=== PATIENT | female | born 1945 | race Caucasian/White ===

== ENCOUNTER 2019-10-21 17:39 | Outpatient (CLI) | payer BC, MEDICARE, SELFPAY ==
--- NOTE | ~2019-10-21 | CT_ITS ---
EXAMINATION: CT abdomen pelvis wo con DATE: 10/21/2019 18:40 INDICATION: Microhematuria. TECHNIQUE: Computed tomography (CT) of the abdomen and pelvis was performed without intravenous contr ast. Automated exposure control and iterative reconstruction technique were employed. The dose-length product was 1355.94 mGy-cm. COMPARISON: CT abdomen and pelvis 09/04/2016 FINDINGS: The visualized portions of the lung bases demonstrate mild atelectasis. No pleural effusion . The heart size is normal. There are coronary artery calcifications. No pericardial effusion. The li lizzette, gallbladder, spleen, pancreas, and adrenal glands are normal. There is a 10 mm cyst in right kid jeff. There is a 4 mm stone in right kidney. There is focal cortical thinning in left kidney. There is a 12 mm cyst in left kidney. There are 3 stones in left kidney measuring up to 5 mm. The ureters are normal. The bladder is not well-distended. There are no dilated loops of bowel. There are no patholo gically enlarged lymph nodes. There is no free intraperitoneal fluid. Epidural electrodes are noted. There are changes of posterior fusion procedure from L3 to L5. There is moderate lumbar spondylosis. IMPRESSION: 1. Bilateral nonobstructing kidney stones. Reviewed, dictated and finalized at location A.
== END 2019-10-21 17:40 | disposition home or self-care (01) ==
LOC: ANHIMG 17:40
PROVIDERS: PCP Internal Medicine; Visit Provider Internal Medicine
DX: R31.29 Other microscopic hematuria (principal); N20.0 Calculus of kidney
CPT/HCPCS: 74176

== ENCOUNTER 2020-05-27 14:06 | Outpatient (CLI) | payer BC, MEDICARE, SELFPAY ==
--- NOTE | ~2020-05-27 | XR_ITS ---
XR facial bones min 3V DATE: 05/27/2020 15:13 INDICATION: Headache. Fall. Facial injury. TECHNIQUE: Pollack, lateral, cazares, submental vertical views COMPARISON: None FINDINGS: Bilateral hyperostosis frontalis interna which is not likely of any clinical significance. The frontozygomatic sutures appear intact. Orbital rims and floors are preserved. No facial fracture is evident. The nasal bones and anterior maxillary spine appear intact. Normal sella turcica. Normal alignment at the included C1-C3. No mandibular fracture is evident. The paranasal sinuses and mastoid air cells are normally developed and aerated. IMPRESSION: No apparent facial fracture Reviewed, dictated and finalized at location B. SWARE SELECTOR IMPRESSION: No apparent facial fracture
--- NOTE | ~2020-05-27 | CT_ITS ---
EXAMINATION: CT diagnostic chest w con DATE: 05/27/2020 15:27 INDICATION: R04.2 - Hemoptysis TECHNIQUE: Computed tomography (CT) of the chest was performed with 75 mL Omnipaque-350 intravenous c ontrast. Additional 3D reconstructions utilizing coronal maximum intensity projection (MIP) were perf ormed. Automated exposure control and iterative reconstruction technique were employed. The dose-beatriz th product was 471.04 mGy-cm. COMPARISON: 03/07/2015 FINDINGS: Lungs are clear with no pneumonia, pulmonary edema, pleural effusion or pneumothorax. Heart size is n ormal. Atherosclerotic coronary artery calcification. No pericardial effusion. Thoracic aorta is norm al in caliber with no dissection. Excellent contrast opacification of the pulmonary arteries demonstr ating no pulmonary embolism. Central pulmonary arteries remain mildly enlarged consistent with pulmon parag arterial hypertension. No pathologically enlarged thoracic lymphadenopathy. Thoracic kyphosis wit h bridging osteophytes at multiple levels consistent with diffuse idiopathic skeletal hyperostosis (D PAYAL). Spinal stimulator leads extending along the posterior aspect of the central canal with distal t ip at the level of T6-T7. IMPRESSION: 1. Clear lungs. No acute cardiopulmonary disease. Line 2. Chronic mild enlargement of the central pulmonary arteries which can be seen with pulmonary arteri al hypertension. Reviewed, dictated and finalized at location A. LINING FITTER IMPRESSION: 1. Clear lungs. No acute cardiopulmonary disease. Line 2. Chronic mild enlargement of the central pulmonary arteries which can be seen with pulmonary arterial hypertension.
[2020-05-27 15:20] LABS: Estimated Glomerular Filt Rate 49
== END 2020-05-27 14:07 | disposition home or self-care (01) ==
LOC: ANHIMG 14:09
PROVIDERS: PCP Internal Medicine; Visit Provider Internal Medicine
DX: R04.2 Hemoptysis (principal)
CPT/HCPCS: 70150; 71260; Q9967

== ENCOUNTER 2020-05-27 14:15 | Outpatient (CLI) | payer BC, MEDICARE, SELFPAY ==
--- NOTE | ~2020-05-27 | XR_ITS ---
XR abdomen/kub 1V DATE: 05/27/2020 15:14 INDICATION: Kidney calculus TECHNIQUE: AP projection, 2 views COMPARISON: 10/21/[address] abdomen pelvis FINDINGS: Up to approximately 6 non or calcification or calcifications overlying the lower pole of th e left kidney. Approximately 6 non or calcification overlying the upper pole of the right kidney. No calcification is noted overlying the course of the ureters. The psoas shadows are intact. No visceromegaly is evident. No evidence of bowel obstruction. Diffuse idiopathic skeletal hyperostosis of the thoracic spine. Diffuse osteopenia. Status post bilateral posterior spinal fusion at L3-L5. Left sided battery pack with leads extending over the thoracic spinal canal. IMPRESSION: Bilateral nephrolithiasis Reviewed, dictated and finalized at Location A. Reviewed, dictated and finalized at location B. DREN LIBRARIAN IMPRESSION: Bilateral nephrolithiasis
== END 2020-05-27 14:16 | disposition home or self-care (01) ==
LOC: ANHIMG 14:22
PROVIDERS: PCP Internal Medicine; Visit Provider Urology
DX: N20.0 Calculus of kidney (principal)
CPT/HCPCS: 74018

== ENCOUNTER 2020-07-09 13:46 | Emergency (ER) | payer BC, MEDICARE, SELFPAY ==
--- NOTE | ~2020-07-09 | XR_ITS ---
. EXAMINATION: XR pelvis 1-2V DATE: 07/09/2020 18:44 INDICATION: Pelvis injury. Right hip pain. TECHNIQUE: An anteroposterior view of the pelvis was obtained. COMPARISON: None. FINDINGS: Bone alignment is normal. No fracture. There are changes of posterior fusion procedure in l umbar spine. There is mild osteoarthritis of the hips. Osteitis pubis is noted. IMPRESSION: 1. Mild osteoarthritis of the hips. Reviewed, dictated and finalized at location A.
--- NOTE | ~2020-07-09 | CT_ITS ---
EXAMINATION: CT cervical spine wo con DATE: 07/09/2020 19:13 INDICATION: Right neck pain. TECHNIQUE: Computed tomography (CT) of the cervical spine was performed without intravenous contrast. Automated exposure control and iterative reconstruction technique were employed. The dose-length pro duct was 357.33 mGy-cm. COMPARISON: CT cervical spine 05/05/19 FINDINGS: There is 4 degrees levocurvature of cervical spine. Vertebral body heights are normal. Ther e are changes of anterior fusion procedure at C5-C6 with healed interbody bone graft. There is mildly decreased disc height at C4-C5. The following disc levels are specifically discussed: C2-C3: There is no uncovertebral joint osteoarthritis. There is moderate left facet joint osteoarthri tis. There is no neural foraminal stenosis. There is no central canal stenosis. C3-C4: There is no uncovertebral joint osteoarthritis. There is no facet joint osteoarthritis. There is no neural foraminal stenosis. There is no central canal stenosis. C4-C5: There is mild bilateral uncovertebral joint osteoarthritis. There is mild bilateral facet join t osteoarthritis. There is no neural foraminal stenosis. There is mild central canal stenosis. C5-C6: There is mild right and moderate left uncovertebral joint hypertrophy. There is no facet joint osteoarthritis. There is mild bilateral neural foraminal stenosis. There is mild central canal steno sis. C6-C7: There is no uncovertebral joint osteoarthritis. There is mild bilateral facet joint osteoarthr itis. There is no neural foraminal stenosis. There is no central canal stenosis. C7-T1: There is no uncovertebral joint osteoarthritis. There is mild bilateral facet joint osteoarthr itis. There is no neural foraminal stenosis. There is no central canal stenosis. IMPRESSION: 1. Mild cervical spondylosis. 2. Anterior fusion procedure at C5-C6. Reviewed, dictated and finalized at location A.
--- NOTE | ~2020-07-09 | CT_ITS ---
EXAMINATION: CT brain wo con DATE: 07/09/2020 19:13 INDICATION: Right neck pain. TECHNIQUE: Computed tomography (CT) of the head was performed without intravenous contrast. The mA wa s adjusted according to patient size. Iterative reconstruction technique was employed. The dose-lengt h product was 681.00 mGy-cm. COMPARISON: Head CT 02/10/2015 FINDINGS: There are scattered areas of low attenuation in the cerebral white matter, which is within normal limits for the patient's age. There is a 4.5 x 0.9 cm arachnoid cyst posterior to right cerebe llum. There is no intracranial hemorrhage, acute infarction, or abnormal intracranial mass lesion. Th e ventricles are normal in size. There is mild mucosal thickening in the ethmoid sinuses. There are l ikely changes of ocular lens replacement surgeries. The mastoid air cells are normal. IMPRESSION: 1. No acute intracranial pathology. Reviewed, dictated and finalized at location A.
--- NOTE | ~2020-07-09 | CT_ITS ---
EXAMINATION: CT lumbar spine wo con DATE: 07/09/2020 19:13 INDICATION: Low back injury. TECHNIQUE: Computed tomography (CT) of the lumbar spine was performed without intravenous contrast. A utomated exposure control and iterative reconstruction technique were employed. The dose-length produ ct was 1118.02 mGy-cm. COMPARISON: None FINDINGS: There are stones in the kidneys measuring up to 8 mm on the left. There is 8 degrees levocu rvature of lumbar spine. There is 3 mm retrolisthesis of L2 on L3, 3 mm anterolisthesis of L3 on L4, and 5 mm anterolisthesis of L4 on L5. There are changes of posterior fusion procedure from L3 to L5 w ith pedicle screws. There are lucencies around the L5 screws, consistent with loosening. There are ch anges of L4 laminectomy. Vertebral body heights are normal. There is moderately decreased disc height from L2-L3 through L4-L5. There are epidural electrodes in thoracic spine. The following disc levels are specifically discussed: L1-L2: The disc is bulging. There is mild bilateral facet joint osteoarthritis. There is mild bilater al neural foraminal stenosis. There is mild central canal stenosis. L2-L3: The disc is bulging. There is moderate bilateral facet joint hypertrophy. There is moderate bi lateral neural foraminal stenosis. There is mild central canal stenosis. L3-L4: The disc is bulging. There is mild bilateral facet joint hypertrophy. There is mild bilateral neural foraminal stenosis. There is mild central canal stenosis with posterior decompression. L4-L5: The disc does not extend beyond the endplate margin. There is moderate bilateral facet joint h ypertrophy. There is mild bilateral neural foraminal stenosis. There is mild central canal stenosis w ith posterior decompression. L5-S1: This is bulging. There is severe bilateral facet joint osteoarthritis. There is mild bilateral neural foraminal stenosis. There is mild central canal stenosis. IMPRESSION: 1. Moderate lumbar spondylosis. 2. Posterior fusion procedure from L3 to L5 with lucencies around the L5 screws, consistent with loos ening. Reviewed, dictated and finalized at location A. IMPRESSION: 1. Moderate lumbar spondylosis. 2. Posterior fusion procedure from L3 to L5 with lucencies around the L5 screws , consistent with loosening.
[2020-07-09 13:52] VITALS: BP 116/72; PULSE 96; RESP 20; TEMP 35.9; O2SAT 98
[2020-07-09 16:58] VITALS: BP 119/71; PULSE 98; RESP 16; O2SAT 96
[2020-07-09 17:25] LABS: Glucose Point of Care 101 (65-105)
--- NOTE | 2020-07-09 18:34 | ED.GENADULT ---
HPI - General Adult General Chief complaint: Fall <Shawn Garcia MD - Last Filed: 07/09/20 18:54> Stated complaint: fall, neck pain, lt sided pain <Shawn Garcia MD - Last Filed: 07/09/20 18:54> Time Seen by Provider: 07/09/20 18:19 <Shawn Garcia MD - Last Filed: 07/09/20 18:54> History of Present Illness HPI narrative: Patient is a 74-year-old female with mobility issues who fell earlier today. She went out to get some packages off her porch when her knee gave out while going down a step and she fell onto her right side and onto the ground. She laid there for 2 hours due to inability to get up. She has been ambulatory since then. She had some burning urination as well. She reports she kept trying to get up and she did fall back and strike her head against the ground. She did this multiple times but never lost consciousness. Its caused her to have increased neck pain. No upper or lower extremity numbness or tingling but she does have throbbing pains in the right low back radiating into her right leg. She has tried no pain medication at home. <Shawn Garcia MD - Last Filed: 07/09/20 18:54> Related Data Home medications: Home Medications Medication Instructions Recorded Confirmed blood sugar diagnostic #10 each 03/03/19 04/07/20 lancets #50 each 03/03/19 04/07/20 pen needle, diabetic 32 gauge x #50 each 03/03/19 04/07/20 1/ polyethylene glycol 3350 17 17 gm PO DAILY 03/03/19 04/07/20 gram/dose oral powder promethazine 25 mg tablet 25 mg PO TID PRN 03/03/19 04/07/20 mirabegron 50 mg tablet,extended 50 mg PO DAILY 04/07/20 04/07/20 release 24 hr <Shawn Garcia MD - Last Filed: 07/09/20 18:54> Allergies/adverse reactions: Allergies Allergy/AdvReac Type Severity Reaction Status Date / Time fluconazole Allergy Severe RASH, Verified 04/06/20 15:17 BLISTERS Sulfa (Sulfonamide Allergy Severe SWELLING Verified 04/06/20 15:17 Antibiotics) sulfamethoxazole Allergy Severe SWELLING Verified 04/06/20 15:17 trimethoprim Allergy Severe SWELLING Verified 04/06/20 15:17 cephalexin Allergy Mild Rash, Verified 04/06/20 15:17 THROAT BURNING naproxen Allergy Mild RASH- ALEVE Verified 04/06/20 15:17 NSAIDS (Non-Steroidal Allergy Mild AVOIDS R/T Verified 04/06/20 15:17 Anti-Inflamma KIDNEY FUNCTION Penicillins Allergy Mild RASH Verified 04/06/20 15:17 Quinolones Allergy Mild RASH Verified 04/06/20 15:17 tetracycline Allergy Mild RASH Verified 04/06/20 15:17 ciprofloxacin Allergy Unknown RASH Verified 04/06/20 15:17 clarithromycin Allergy Unknown Rash Verified 04/06/20 15:17 levofloxacin Allergy Unknown rash Verified 04/06/20 15:17 nitrofurantoin Allergy Unknown rash Verified 04/06/20 15:17 sulfamethizole Allergy Unknown Rash Verified 04/06/20 15:17 Tetracyclines Allergy Unknown rash Verified 04/06/20 15:17 morphine Allergy Numbness Verified 04/06/20 15:17 <Shawn Garcia MD - Last Filed: 07/09/20 18:54> Review of Systems Review of Systems: All systems reviewed & are unremarkable except as noted in HPI and below <Shawn Garcia MD - Last Filed: 07/09/20 18:54> Constitutional: Constitutional: Denies chills, Denies fever(s) and Reports weakness <Shawn Garcia MD - Last Filed: 07/09/20 18:54> Cardiovascular: Cardiovascular: Denies chest pain and Denies radiating jaw, neck or arm pain <Shawn Garcia MD - Last Filed: 07/09/20 18:54> Respiratory: Respiratory: Denies cough and Denies dyspnea <Shawn Garcia MD - Last Filed: 07/09/20 18:54> Gastrointestinal: Gastrointestinal: Denies abdominal pain, Denies nausea and Denies vomiting <Shawn Garcia MD - Last Filed: 07/09/20 18:54> Musculoskeletal: Musculoskeletal: Reports back pain, Reports myalgias, Denies arthralgias and Denies joint swelling <Shawn Garcia MD - Last Filed: 07/09/20 18:54> Neurologic: Denies syncope, Denies headache(s), Denies focal weakne
[2020-07-09] MEDS: HYDROcodone/acetaminophen (*CRX) 5-325 MG TABLET 1 TAB PO (18:56)
[2020-07-09 19:12] VITALS: BP 120/69; PULSE 98; RESP 17; O2SAT 99
[2020-07-09 19:46] LABS: Add Urine Microscopic? YES; Appearance Urine Clear (Clear); Bilirubin Urine Negative (Negative); Color Urine Yellow (Yellow); Glucose Urine UA Negative (Negative); Ketones Urine Trace mg/dL (Negative); Leukocyte Esterase Ur Trace LEU/UL (Negative); Mucus Urine Rare /lpf; Nitrate Urine Negative (Negative); Protein Urine 2+ mg/dL (Negative); Specific Grav Ur 1.028 (1.001-1.035); Squamous Epithelial Cell Urine Rare /hpf (Few); Transitional Epi Cells Urine Rare /hpf (None Seen); Urobilinogen Urine Negative mg/dL (<2.0)
[2020-07-09 19:55] LABS: Blood Urine Negative (Negative)
[2020-07-09 20:16] VITALS: BP 134/58; PULSE 92; RESP 18; O2SAT 96
--- NOTE | 2020-07-09 20:18 | PC.NURSE ---
Pt resting on cart in supine position. Pt states she fell today out of the front door and landed on the front porch. Pt states her knees gave out, causing her to fall. Pt states she is unsure if she loc because she was outside for at least two hours and believe she fell asleep. No obvious bruising or injuries noted to head and face. Pt rates pain 9/10 at this time that is located on right leg and right gluteus and right lower back. remains at bedside; he and pt updated on poc and advised that EDMD will present to bedside for update. Will advise EDMD continued complaint of pain. Vitals are stable and pt in no obvious distress at this time.
[2020-07-09 22:04] VITALS: BP 134/63; PULSE 88; RESP 18; TEMP 37.1; O2SAT 95
[2020-07-09] MEDS: CEFUROXIME AXETIL 250 MG TABLET 500 MG PO (22:05)
== END 2020-07-09 21:08 | disposition home or self-care (01) ==
PROVIDERS: Emergency Medicine; Emergency Provider Emergency Medicine; PCP Internal Medicine
DX: N30.00 Acute cystitis without hematuria (principal); S09.90XA Unspecified injury of head, initial encounter; M54.2 Cervicalgia; S39.92XA Unspecified injury of lower back, initial encounter; E11.22 Type 2 diabetes mellitus with diabetic chronic kidney disease; I12.9 Hypertensive chronic kidney disease with stage 1 through stage 4 chronic kidney disease, or unspecified chronic kidney disease; N18.1 Chronic kidney disease, stage 1; Z79.84 Long term (current) use of oral hypoglycemic drugs; E78.5 Hyperlipidemia, unspecified; E03.9 Hypothyroidism, unspecified; E55.9 Vitamin D deficiency, unspecified; Z96.653 Presence of artificial knee joint, bilateral; Z90.49 Acquired absence of other specified parts of digestive tract; M16.0 Bilateral primary osteoarthritis of hip; Z98.1 Arthrodesis status; M47.816 Spondylosis without myelopathy or radiculopathy, lumbar region; M47.812 Spondylosis without myelopathy or radiculopathy, cervical region; W10.9XXA Fall (on) (from) unspecified stairs and steps, initial encounter
CPT/HCPCS: 70450; 72125; 72131; 72170; 81001; 87086; 87088; 99284; A9270; L0140

== ENCOUNTER → 2020-09-02 11:12 | Outpatient (CLI) | payer BC, MEDICARE, SELFPAY ==
--- NOTE | ~2020-09-02 | US_ITS ---
EXAMINATION: US abdomen complete DATE: 09/02/2020 11:53 INDICATION: Generalized abdominal pain. TECHNIQUE: Multiple grayscale and Doppler ultrasound images of the abdomen were obtained. COMPARISON: CT abdomen and pelvis 10/21/2019 FINDINGS: Abdominal aorta is normal in caliber. The visualized portions of the inferior vena cava is normal. The visualized portions of the head, body, and tail of the pancreas are normal. The liver is normal without focal lesion. There is normal flow in main portal vein. The gallbladder is normal in s ize. No gallstones or gallbladder wall thickening. There was no sonographic Ortiz sign. The common d uct is normal and measures 3 mm. The kidneys are normal in size. There are cysts in the kidneys measu ring up to 1.6 cm on the right. The spleen is normal in size. IMPRESSION: 1. No etiology for the patient's symptoms. Reviewed, dictated and finalized at location B.
--- NOTE | ~2020-09-02 | XR_ITS ---
EXAMINATION: XR UGI w small bowel DATE: 09/02/2020 16:25 INDICATION: Generalized abdominal pain. TECHNIQUE: The patient drank thin barium. Fluoroscopy of the esophagus, stomach, and small bowel was performed. Fluoroscopy exposure time was 1.1 minutes. Radiographs of the abdomen were obtained. The t ota number of images was 289. COMPARISON: CT abdomen and pelvis 10/21/2019, lumbar spine CT 07/09/2020 FINDINGS: UPPER GASTROINTESTINAL SERIES: There is no mass or stricture of the esophagus. There is decreased primary and secondary esophageal p eristalsis. There is no hiatal hernia. The stomach shows a normal folding pattern. SMALL BOWEL SERIES: The small bowel shows a normal folding pattern. At 3 hours and 50 minutes, contrast had reached the d istal ileum, but not the colon. The terminal ileum was normal on the lumbar spine CT on 07/09/2020. The re are changes of posterior fusion procedure in lumbar spine. Epidural electrodes are noted. IMPRESSION: 1. Mild esophageal dysmotility. 2. Slow small bowel transit. Reviewed, dictated and finalized at location B.
== END ==
PROVIDERS: PCP Internal Medicine; Visit Provider Internal Medicine
DX: R10.84 Generalized abdominal pain (principal); Z90.49 Acquired absence of other specified parts of digestive tract
CPT/HCPCS: 74240; 74248; 76700

== ENCOUNTER 2021-08-03 18:11 | Outpatient (CLI) | payer BC, MEDICARE, SELFPAY ==
--- NOTE | ~2021-08-03 | XR_ITS ---
XR lumbar spine 2-3V DATE: 08/03/2021 18:42 INDICATION: Low back pain radiating to hips. Recent falls. TECHNIQUE: AP, lateral, coned lateral lumbosacral views COMPARISON: 07/09/2020 CT lumbar spine 09/04/2017 lumbar spine FINDINGS: Left-sided battery pack with leads extending to the thoracic spinal canal. Status post lumbar laminectomy and posterior surgical fusion at L3-5 by pedicle screws and rods. Ther e is lucency surrounding the L5 pedicle screws consistent with loosening. Grade 1 anterolisthesis at L4-5 views again noted. Multilevel degenerative disc disease, most pronounced at L3-4 and L4-5. No fracture or bone destruction is evident. The sacroiliac joints are intact. IMPRESSION: Status post lumbar laminectomy and posterior surgical fusion at L3-L5 Loosening of L5 pedicle screws Multilevel degenerative disc disease Grade 1 anterolisthesis at L4-5, chronic Reviewed, dictated and finalized at location A. IMPRESSION: Status post lumbar laminectomy and posterior surgical fusion at L3- L5 Loosening of L5 pedicle screws Multilevel degenerative disc disease Grade 1 anterolisthesis at L4-5, chronic
== END 2021-08-03 18:12 | disposition home or self-care (01) ==
PROVIDERS: PCP Internal Medicine; Visit Provider Internal Medicine
DX: M51.36 Other intervertebral disc degeneration, lumbar region (principal); Z98.1 Arthrodesis status
CPT/HCPCS: 72100

== ENCOUNTER 2022-04-27 15:57 | Outpatient (CLI) | payer BC, MEDICARE, SELFPAY ==
--- NOTE | ~2022-04-27 | XR_ITS ---
XR knee RT min 4V DATE: 04/27/2022 16:41 INDICATION: Injury TECHNIQUE: High [place], gurpreet standing frontal and lateral views COMPARISON: 06/05/2007 right knee FINDINGS: There is an intramedullary lisbet of the femur that wasn't present on 06/05/2007. There has bee n interval revision of the right total knee arthroplasty since 06/05/2007, with larger femoral and tib ial prosthesis devices and longer tibial prosthesis stem. There is patellar resurfacing. There is diffuse osteopenia. No recent fracture or dislocation or joint effusion, periosteal reaction or bone destruction is evide nt. IMPRESSION: Right total knee revision since 06/05/2007 Osteopenia Reviewed, dictated and finalized at location L. T FILLER
== END 2022-04-27 15:58 | disposition home or self-care (01) ==
PROVIDERS: PCP Internal Medicine; Visit Provider Internal Medicine
DX: T14.90XA Injury, unspecified, initial encounter (principal); M85.861 Other specified disorders of bone density and structure, right lower leg
CPT/HCPCS: 73564

== ENCOUNTER 2022-05-16 17:05 | Outpatient (CLI) | payer BC, MEDICARE, SELFPAY ==
--- NOTE | ~2022-05-16 | XR_ITS ---
EXAMINATION: XR abdomen/kub 1V DATE: 05/16/2022 17:23 INDICATION: Right-sided renal stone TECHNIQUE: A supine view of the abdomen on 2 radiographs was obtained. COMPARISON: 05/27/2020 FINDINGS: Enlargement of a now 8 mm stone projecting over the upper pole of the right kidney. No other evident urolithiasis. Moderate amount of colonic stool. No dilated gas-filled bowel to suggest obstruction. S mall right pleural effusion. Spinal stimulator with leads extending cephalad along the lower thoracic spine with distal tip of one lead at the level of T8-T9 and the second slightly more cephalad beyond the [id number] likely at the level of T7-T8. L4 laminectomy with L3-L5 instrumented posterior spi nal fusion with bilateral vertical lisbet and pedicle screw fixation. There is some lucency surrounding the screws bilaterally at L5 and on the right at L3 which suggests loosening. Mild bilateral hip and sacroiliac osteoarthritis. IMPRESSION: 1. 8 mm right renal stone. Reviewed, dictated and finalized at location A. CIDE SQUAD COMMANDING OFFICER IMPRESSION: 1. 8 mm right renal stone.
== END 2022-05-16 17:06 | disposition home or self-care (01) ==
PROVIDERS: PCP Internal Medicine; Visit Provider Urology
DX: N20.0 Calculus of kidney (principal)
CPT/HCPCS: 74018

== ENCOUNTER 2022-09-15 14:12 | Emergency (ER) | payer BC, MEDICARE, SELFPAY ==
[2022-09-15] VITALS (29 sets, daily range): BP systolic 92–160; BP diastolic 52–104; PULSE 97; RESP 17; TEMP 36.8; O2SAT 93–100
--- NOTE | ~2022-09-15 | XR_ITS ---
EXAMINATION: XR knee RT min 4V DATE: 09/15/2022 17:54 INDICATION: Right knee pain TECHNIQUE: Four views of the right knee were obtained. COMPARISON: 04/27/2022 FINDINGS: Changes of knee arthroplasty are noted. Bone alignment is normal. There is no fracture. No joint effusion/synovitis. Soft tissues are unremarkable. IMPRESSION: 1. No acute osseous abnormality. Reviewed, dictated and finalized at location F.
--- NOTE | ~2022-09-15 | CT_ITS ---
EXAMINATION: CT cervical spine wo con DATE: 09/15/2022 17:37 INDICATION: Head injury TECHNIQUE: Computed tomography (CT) of the cervical spine was performed without intravenous contrast. The dose-length product (DLP) was 413.07 mGy-cm. Automated exposure control and iterative reconstruc tion technique were employed. COMPARISON: 07/09/2020 FINDINGS: There are changes of anterior fusion procedure at C5-6. There is mild loss of intervertebra l disc space height at C4-5. Bone alignment is normal. There is no fracture. The vertebral body heigh ts are maintained. The odontoid process is intact. There is multilevel mild facet and uncovertebral j oint osteoarthritis. IMPRESSION: 1. Mild cervical spondylosis without acute findings or significant interval change. Reviewed, dictated and finalized at location F. IMPRESSION: 1. Mild cervical spondylosis without acute findings or significant interval mari nge.
--- NOTE | ~2022-09-15 | CT_ITS ---
EXAMINATION: CT brain wo con INDICATION: Head injury COMPARISON: 07/09/2020 TECHNIQUE: Standard unenhanced head CT. The dose-length product (DLP) was 681.00 mGy-cm. The mA was a djusted according to patient size. Iterative reconstruction technique was employed. FINDINGS: There is a right parietal scalp hematoma. A chronic arachnoid cyst is again noted posterior to the right cerebellum. There is no acute intraparenchymal hemorrhage. No evidence of mass lesion. No evidence of acute infarction. There is mild periventricular and subcortical hypodensity probably r elated to small vessel ischemic disease. There is mild prominence of the sulci and ventricles related to cerebral atrophy. Intracranial calcified cerebral atherosclerosis is noted. There are no extra-ax ial collections. There is no mass effect or midline shift. Changes in the globes are likely from ocul ar lens surgery. The visualized sinuses and mastoid air cells are well aerated. There is frontal skul l hyperostosis (hyperostosis frontalis interna), a normal variant. IMPRESSION: 1. No acute intracranial abnormality. 2. Age related findings. Reviewed, dictated and finalized at location F.
--- NOTE | ~2022-09-15 | CT_ITS ---
EXAMINATION: CT pelvis wo con DATE: 09/15/2022 17:44 INDICATION: Pelvic pain after fall TECHNIQUE: Computed tomography (CT) of the pelvis was performed without intravenous contrast. The dos e-length product (DLP) was 736.77 mGy-cm. Automated exposure control and iterative reconstruction livan hnique were employed. COMPARISON: 10/21/2019 FINDINGS: Bone alignment is normal. There is no fracture. There is mild osteoarthritis of the hips. T he sacrum and coccyx are unremarkable. There are no pathologically enlarged pelvic lymph nodes. Surgi tristan changes are noted in the lumbar spine. IMPRESSION: 1. No acute osseous abnormality. Reviewed, dictated and finalized at location F.
--- NOTE | ~2022-09-15 | CT_ITS ---
EXAMINATION: CT lumbar spine wo con DATE: 09/15/2022 17:38 INDICATION: Low back pain TECHNIQUE: Computed tomography (CT) of the lumbar spine was performed without intravenous contrast. T he dose-length product (DLP) was 1373.34 mGy-cm. Iterative reconstruction was used. COMPARISON: 07/09/2020 FINDINGS: There are changes of posterior fusion and laminectomy from L3 through L5. There are 2 mm of retrolisthesis of L2 on L3, 3 mm of anterolisthesis of L3 on L4, and 5 mm of anterolisthesis of L4 o n L5. There is moderate loss of intervertebral disc space height at L2-3, L3-4, and L4-5. There is no fracture. The previously described epidural electrodes of the thoracic spine have been removed. Ther e are 8 mm nonobstructing stones of the kidneys. IMPRESSION: 1. Changes of posterior fusion and laminectomy from L3 through L5 and moderate lumbar spondylosis wit hout acute findings or significant interval change. Reviewed, dictated and finalized at location F. IMPRESSION: 1. Changes of posterior fusion and laminectomy from L3 through L5 and moderate lumbar spondylosis without acute findings or significant interval change.
--- NOTE | 2022-09-15 17:59 | ED.FALL ---
HPI - Fall General Chief Complaint: Fall Stated Complaint: fall Time Seen by Provider: 09/15/22 16:53 Source: patient Mode of arrival: ambulatory Limitations: no limitations History of Present Illness HPI Narrative: Patient is a 76-year-old female who presents to the ED with report of a fall. Patient reports a long history of knee problems and states she often has difficulty ambulating. She uses a cane typically. On Sunday, patient was out on her front porch moving around potted plants and did not have her cane with her when she lost her balance fell backwards off of the porch onto the concrete. She denied any prodromal symptoms prior to the fall. She hit her posterior head on the concrete. She thinks she may have lost consciousness. She was able to get up off the ground after approximately 30 minutes with the help of her neighbor. She did not want to be medically evaluated at that time. She complains of persistent headaches, dizziness, neck pain, low back pain, tailbone pain, pain to her right knee. She has been able to ambulate since then, but has pain with this and has required use of a walker. Patient is not on any blood thinners. She denies any chest pain, difficulty breathing, vision changes, nausea, vomiting. Patient reports multiple histories of neck and back surgeries/fusions. Related Data Home Medications Medication Instructions Recorded Confirmed blood sugar diagnostic (Accu-Chek #10 ea 03/03/19 03/10/22 Karishma Plus test strips) lancets (Accu-Chek Softclix #50 ea 03/03/19 03/10/22 Lancets) pen needle, diabetic 32 gauge x #50 ea 03/03/19 03/10/22 1/ (Novofine 32) polyethylene glycol 3350 17 17 gm PO DAILY 03/03/19 03/10/22 gram/dose oral powder promethazine 25 mg tablet 25 mg PO TID PRN 03/03/19 03/10/22 Allergies Allergy/AdvReac Type Severity Reaction Status Date / Time fluconazole Allergy Severe RASH, Verified 09/15/22 18:04 BLISTERS Sulfa (Sulfonamide Allergy Severe SWELLING Verified 09/15/22 18:04 Antibiotics) sulfamethoxazole Allergy Severe SWELLING Verified 09/15/22 18:04 trimethoprim Allergy Severe SWELLING Verified 09/15/22 18:04 cephalexin Allergy Mild Rash, Verified 09/15/22 18:04 THROAT BURNING naproxen Allergy Mild RASH- ALEVE Verified 09/15/22 18:04 NSAIDS (Non-Steroidal Allergy Mild AVOIDS R/T Verified 09/15/22 18:04 Anti-Inflamma KIDNEY FUNCTION Penicillins Allergy Mild RASH Verified 09/15/22 18:04 Quinolones Allergy Mild RASH Verified 09/15/22 18:04 tetracycline Allergy Mild RASH Verified 09/15/22 18:04 clarithromycin Allergy Unknown Rash Verified 09/15/22 18:04 levofloxacin Allergy Unknown rash Verified 09/15/22 18:04 nitrofurantoin Allergy Unknown rash Verified 09/15/22 18:04 sulfamethizole Allergy Unknown Rash Verified 09/15/22 18:04 Tetracyclines Allergy Unknown rash Verified 09/15/22 18:04 morphine Allergy Numbness Verified 09/15/22 18:04 Review of Systems Review of Systems: CONSTITUTIONAL: Denies fever, chills, or sweats. EYES: Denies visual changes. CARDIOVASCULAR: Denies chest pain. RESPIRATORY: Denies dyspnea. GASTROINTESTINAL: Denies abdominal pain, nausea, vomiting. MUSCULOSKELETAL: See HPI. NEUROLOGIC: See HPI. 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
[2022-09-15] MEDS: oxyCODONE/ACETAMINOPHEN (*CRX) 5-325 MG TABLET 1 TABLET PO (18:06)
== END 2022-09-15 20:12 | disposition home or self-care (01) ==
PROVIDERS: Emergency Provider Physician Assistant; PCP Internal Medicine
DX: S06.9X1A Unspecified intracranial injury with loss of consciousness of 30 minutes or less, initial encounter (principal); S39.012A Strain of muscle, fascia and tendon of lower back, initial encounter; S16.1XXA Strain of muscle, fascia and tendon at neck level, initial encounter; S30.0XXA Contusion of lower back and pelvis, initial encounter; E11.22 Type 2 diabetes mellitus with diabetic chronic kidney disease; I12.9 Hypertensive chronic kidney disease with stage 1 through stage 4 chronic kidney disease, or unspecified chronic kidney disease; N18.1 Chronic kidney disease, stage 1; E78.5 Hyperlipidemia, unspecified; E03.9 Hypothyroidism, unspecified; E55.9 Vitamin D deficiency, unspecified; N32.81 Overactive bladder; G89.4 Chronic pain syndrome; Z96.653 Presence of artificial knee joint, bilateral; Z98.1 Arthrodesis status; Z87.442 Personal history of urinary calculi; Z87.440 Personal history of urinary (tract) infections; Z90.49 Acquired absence of other specified parts of digestive tract; Z79.85 Long-term (current) use of injectable non-insulin antidiabetic drugs; Z79.84 Long term (current) use of oral hypoglycemic drugs; M47.812 Spondylosis without myelopathy or radiculopathy, cervical region; M47.816 Spondylosis without myelopathy or radiculopathy, lumbar region; W13.8XXA Fall from, out of or through other building or structure, initial encounter
CPT/HCPCS: 70450; 72125; 72131; 72192; 73564; 99284; A9270

== ENCOUNTER 2022-11-02 13:36 | Outpatient (CLI) | payer BC, MEDICARE, SELFPAY ==
--- NOTE | ~2022-11-02 | MR_ITS ---
MRI of the lumbar spine Clinical History: Postlaminectomy Technique: Axial T2-weighted images, and sagittal T1-weighted, T2-weighted, and T2 fat-sat images wer e acquired. COMPARISON: 10/09/2017 Findings: There is posterior fusion hardware extending from L3 through L5, with bilateral rods and tr anspedicular screws present. There are probable laminectomy defects of L4 and L5. There is 6 mm anter olisthesis of L4 over L5. No suspicious bone marrow signal abnormality seen. No acute fracture seen. At L1-L2, there is no disc bulge or herniation. There is moderate facet arthropathy. No central canal stenosis. There is minimal bilateral neural foraminal narrowing. At L2-L3, there is minimal disc bulge and moderate facet arthropathy. No central canal stenosis. Ther e is moderate to severe right neural foraminal narrowing, and moderate left neural foraminal narrowin g. L3-L4, there is no disc bulge or herniation. No central canal stenosis. Probable minimal right neural foraminal narrowing. At L4-L5, there is disc uncovering, but no canal stenosis, as there is posterior decompression. Proba ble moderate bilateral neural foraminal narrowing. At L5-S1, there is no disc bulge or herniation. There is moderate facet arthropathy. No central canal stenosis or definite neural foraminal narrowing. Paravertebral soft tissues are unremarkable aside from expected postoperative change. Impression: Posterior fusion from L3 through L5, with associated 6 mm anterolisthesis of L4 over L5. Mild degenerative spondylosis overall, as detailed above, similar to prior exam. Reviewed, dictated and finalized at [facility]. Impression: Posterior fusion from L3 through L5, with associated 6 mm anterolisthesis of L4 over L5. Mild degenerative spondylosis overall, as detailed above, similar to prior exam .
--- NOTE | ~2022-11-02 | MR_ITS ---
MRI of the thoracic spine Clinical History: Postlaminectomy Technique: Axial T2-weighted and gradient images, and sagittal T1-weighted, T2-weighted, and STIR abimael ges were acquired. COMPARISON: 10/09/2017 Findings: There is no fracture or subluxation of the thoracic spine. There is mild kyphosis. Intraoss eous hemangiomas are present at the T7 and T8 vertebral bodies. There is mild to moderate degenerativ e disc narrowing throughout the mid thoracic spine. There is DISH of the mid to lower thoracic spine. There is prominent facet arthropathy at T2-T3, without darryn canal stenosis or cord compression. Ther e are mild disc protrusions at T7-T8, T8-T9, T9-T10, and T10-T11, similar to prior exam. There is min imal flattening of the ventral cord at these levels.. No abnormal signal seen in the spinal cord. Paravertebral soft tissues are unremarkable. Impression: Overall, no significant change from prior exam. Mild to moderate degenerative spondylosis at the mid to lower thoracic spine, as detailed above. Stable kyphosis of the thoracic spine. Reviewed, dictated and finalized at [facility]. Impression: Overall, no significant change from prior exam. Mild to moderate degenerative s pondylosis at the mid to lower thoracic spine, as detailed above. Stable kyphosis of the thoracic spine.
== END 2022-11-02 13:37 | disposition home or self-care (01) ==
PROVIDERS: PCP Internal Medicine
DX: M96.1 Postlaminectomy syndrome, not elsewhere classified (principal); Z98.1 Arthrodesis status; M47.896 Other spondylosis, lumbar region
CPT/HCPCS: 72146; 72148

== ENCOUNTER 2023-02-22 16:54 | Outpatient (CLI) | payer BC, MEDICARE, SELFPAY ==
--- NOTE | ~2023-02-22 | XR_ITS ---
EXAMINATION: XR shoulder LT min 2V DATE: 02/22/2023 17:20 INDICATION: Left shoulder pain post fall TECHNIQUE: AP and transscapular Y views of the left shoulder were obtained. COMPARISON: None FINDINGS: Subtle linear lucency projecting consistent with nondisplaced fracture extending across the posterior facet of the greater tuberosity of the proximal left humerus. Deformity of the left femoral head nec k junction suggesting likely impacted fracture of the surgical neck. No significant displacement or a ngulation appreciated. Widening of the superior glenohumeral joint space consistent with the presence of a likely joint effusion/hemarthrosis. No other fractures identified. Moderate left acromioclavicu lar osteoarthritis with prominent inferiorly directed osteophytes. IMPRESSION: Likely comminuted 1 part fracture of the proximal left humerus. Reviewed, dictated and finalized at location A. TENANCE TECHNICIAN 3RD SHIFT
== END 2023-02-22 16:55 | disposition home or self-care (01) ==
PROVIDERS: PCP Internal Medicine; Visit Provider Internal Medicine
DX: M25.512 Pain in left shoulder (principal)
CPT/HCPCS: 73030

== ENCOUNTER 2023-02-22 17:53 | Emergency (ER) | payer BC, MEDICARE, SELFPAY ==
--- NOTE | ~2023-02-22 | XR_ITS ---
EXAMINATION: XR hip BI 2V w AP pelvis DATE: 02/22/2023 22:25 INDICATION: Bilateral hip pain post fall TECHNIQUE: Anteroposterior view of the pelvis and anteroposterior and frog-leg lateral views of the l eft hip and anteroposterior and frog-leg lateral views of the right hip and were obtained. COMPARISON: None. FINDINGS: Alignment is normal. No fracture. Mild osteoarthritis at the bilateral hip and sacroiliac joints. L4 laminectomy and lower lumbar instrumented posterior spinal fusion with bilateral vertical lisbet and ped icle screw fixation at L3-L5. There is increased lucency surrounding the pedicle screws at L5 which c an be seen with loosening. Power supply for a spinal stimulator projects over the left buttock. IMPRESSION: 1. No acute osseous abnormality. Reviewed, dictated and finalized at location A. UET HOUSEPERSON
--- NOTE | ~2023-02-22 | XR_ITS ---
EXAMINATION: XR elbow LT 2V DATE: 02/22/2023 22:25 INDICATION: Left elbow pain TECHNIQUE: Anteroposterior and lateral views of the left elbow were obtained. COMPARISON: None. FINDINGS: Alignment is normal. No fracture or joint effusion. Mild osteoarthritis at the ulnotrochlear articula tion of the left elbow. Tiny olecranon enthesophyte. Soft tissues are unremarkable. IMPRESSION: 1. No left elbow joint effusion or acute osseous abnormality. Reviewed, dictated and finalized at location A. K TENDER
--- NOTE | ~2023-02-22 | CT_ITS ---
EXAMINATION: CT cervical spine wo con DATE: 02/22/2023 22:29 INDICATION: Neck pain post fall TECHNIQUE: Computed tomography (CT) of the cervical spine was performed without intravenous contrast. Automated exposure control and iterative reconstruction technique were employed. The dose-length pro duct was 260.81 mGy-cm. COMPARISON: 09/15/2022 FINDINGS: Alignment is normal. Moderate osteoarthritis at the atlantoaxial articulation. C5-C6 anterior spinal fusion with prominent posterior hypertrophic changes which result in mild central canal stenosis at t his level. Unfused vertebral body heights are normal. No acute fracture. Mild disc height loss at C2- C3 through C4-C5. Disc bulges at C3-C4 and C4-C5 resulting additional less severe mild central canal stenosis. Multilevel bilateral mild to moderate cervical and upper thoracic facet osteoarthritis and mild cervical uncovertebral osteoarthritis. Atherosclerotic calcification is at the bilateral carotid bulbs. Cervical soft tissues are otherwise unremarkable. Visualized apices of lungs are clear. IMPRESSION: 1. Mild cervical spondylosis with C5-C6 interspace pleural effusion. No acute osseous abnormality. Reviewed, dictated and finalized at location A. BILITY EXAMINER IMPRESSION: 1. Mild cervical spondylosis with C5-C6 interspace pleural effusion. No acute o sseous abnormality.
--- NOTE | ~2023-02-22 | XR_ITS ---
EXAMINATION: XR chest 1V DATE: 02/22/2023 22:25 INDICATION: Fall TECHNIQUE: frontal view of the chest was obtained. COMPARISON: Chest radiograph dated 03/09/[address] dated 05/27/2020 FINDINGS: The lungs remain clear with no focal airspace opacities, pulmonary edema, pleural effusion or pneumot horax. The cardiomediastinal silhouette is normal. Spinal stimulator leads project over the central c anal of the lower thoracic spine. IMPRESSION: 1. No acute cardiopulmonary disease. Reviewed, dictated and finalized at location A. ITY WORKER [employer]
--- NOTE | ~2023-02-22 | CT_ITS ---
EXAMINATION: CT brain wo con DATE: 02/22/2023 22:28 INDICATION: Head injury post fall TECHNIQUE: Computed tomography (CT) of the head was performed without intravenous contrast. Sagittal and coronal reconstructions were performed. Automated exposure control and iterative reconstruction t echnique were employed. The dose-length product was 832.33 mGy-cm. COMPARISON: head CT dated 09/25/2022 FINDINGS: No fracture. Small old lacunar infarcts at the left thalamus at the left caudate nucleus which are ne w since the prior study. No acute intracranial hemorrhage or acute infarction. Unchanged chronic arac hnoid cyst posterior to the right cerebellar hemisphere. There is mild scattered white matter hypoatt enuation consistent with chronic small vessel ischemic disease. Ventricles are normal and symmetric. No mass/mass effect. Intracranial calcified cerebral atherosclerosis is noted. Changes of bilateral intraocular lens replacement. The orbits, paranasal sinuses and mastoid air cells are normal. Promine nt hyperostosis frontalis. IMPRESSION: 1. No fracture or acute intracranial process. 2. Small lacunar infarcts at the left thalamus and left caudate nucleus which are new since the prior study. Reviewed, dictated and finalized at location A. FIELD MANAGER IMPRESSION: 1. No fracture or acute intracranial process. 2. Small lacunar infarcts at the left thalamus and left caudate nucleus which a re new since the prior study.
--- NOTE | ~2023-02-22 | CT_ITS ---
EXAMINATION: CT thoracic lumbar wo con DATE: 02/22/2023 22:39 INDICATION: Back pain post fall TECHNIQUE: Computed tomography (CT) of the vascular lumbar spine was performed without intravenous co ntrast. Sagittal and coronal reconstructions were performed. Automated exposure control and iterative reconstruction technique were employed. The dose-length product was 1784.82 mGy-cm. COMPARISON: Thoracic and lumbar spine MRI dated 11/02/2022 FINDINGS: Thoracic spine: Mild thoracic kyphosis and dextrocurvature. Anterior fusion at C5-C6. There are bridging osteophytes extending from T4 through T12 consistent with diffuse idiopathic skeletal hyperostosis (DISH). Verteb ral body heights are normal. No fracture. Severe disc height loss with additional fusion across porti ons of the central disc spaces at T7-T8 through T9-T10. Moderate disc height loss from T2-T3 T6-T7 an d at T10-T11. Mild disc height loss at T1-T2. There is mild bilateral moderate to severe thoracic fac et osteoarthritis with fusion across several of the bilateral mid thoracic facet joints. There is mul tilevel neural foraminal stenosis, moderate severity on the bilaterally at T2-T3 and T5-T6 and mild a t many of the remaining thoracic levels. Small endplate osteophytes result in mild central canal sten osis at T6-T7. A couple spinal stimulator leads extends cephalad within the thoracic central canal wi th distal lead tips positioned posteriorly at the level of T9 and T11. Paravertebral soft tissues are unremarkable. Respiratory motion and mild atelectasis in the visualized portions of the lungs. Ather osclerotic coronary artery calcifications. No pericardial or pleural effusion. Lumbar spine: L4 laminectomy and partial L3 laminectomy. Instrumented L3-L5 posterior spinal fusion with bilateral vertical lisbet and pedicle screw fixation. 2 mm retrolisthesis L2 on L3 and 6 mm anterolisthesis L4 on L5. Vertebral body heights are normal. No fractures. Mild disc height loss at L2-L3. Moderate disc he ight loss at L3-L4 and L4-L5. Vacuum phenomena without disc height loss at L5-S1. No evident central canal stenosis. Moderate to severe neural foraminal stenosis on the right at L2-L3. Moderate neural f oraminal stenosis on the left at L2-L3 and bilaterally at L4-L5. Mild neural foraminal stenosis bilat erally at L1-L2. Moderate bilateral sacroiliac osteoarthritis. IMPRESSION: 1. Severe thoracic spondylosis along with bridging osteophytes related to DISH extending from T4 thro ugh T12. No acute osseous abnormality. 2. Moderate lumbar spondylosis with L4 laminectomy, partial L3 laminectomy and L3-L5 instrumented pos terior spinal fusion. No acute osseous abnormality. Reviewed, dictated and finalized at location A. CONTRACTOR IMPRESSION: 1. Severe thoracic spondylosis along with bridging osteophytes related to DISH extending from T4 through T12. No acute osseous abnormality. 2. Moderate lumbar spondylosis with L4 laminectomy, partial L3 laminectomy and L3-L5 instrumented posterior spinal fusion. No acute osseous abnormality.
[2023-02-22 18:09] VITALS: BP 105/59; PULSE 100; RESP 16; O2SAT 96
[2023-02-22 18:19] LABS: Glucose Point of Care 167 mg/dl (65-105)
--- NOTE | 2023-02-22 21:53 | ECG_ITS ---
Measurements Intervals [place] Rate: 95 P: 46 MD: 185 QRS: 0 QRSD: 89 T: 54 QT: 329 QTc: 415 Interpretive Statements SINUS RHYTHM CONSIDER ANTERIOR INFARCT, AGE INDETERMINATE INFERIOR INFARCT, AGE INDETERMINATE BASELINE ARTIFACT- I, II, AVR, AVL, V1 ABNORMAL ECG NO PREVIOUS ECG AVAILABLE FOR COMPARISON Electronically Signed On 02-23-2023 5:58:18 TAPE CONTROL SKIN OR SPAR MILL OPERATOR by Rodrigo Burrell D.O.
[2023-02-22 22:47] LABS: Glucose Point of Care 121 mg/dl (65-105)
[2023-02-22 23:06] LABS: Basophils Absolute Auto 0.1 K/mm3 (0.0-0.1); Eosinophils Absolute Auto 0.2 K/mm3 (0-0.3); Eosinophils Percent Auto 1.8 % (0-4.4); Hematocrit 35.3 % (37.0-47.0); Hemoglobin 9.5 g/dL (12.0-15.0); Immature Granulocyte Absolute 0.02 K/mm3 (0.00-0.031); Immature Granulocyte Percent A 0.2 % (0-0.5); Lymphocytes Absolute Auto 3.01 K/mm3 (0.9-3.2); Lymphocytes Percent Auto 26.7 % (18.3-44.2); Mean Corpuscular HGB Conc 26.9 g/dl (32-36); Mean Corpuscular Hemoglobin 19.8 pg (26-34); Mean Corpuscular Volume 73.7 fl (80-100); Mean Platelet Volume 10.4 fl (7.4-10.4); Monocytes Absolute Auto 0.6 K/mm3 (0.1-0.6); Monocytes Percent Auto 5.6 % (2.6-8.5); Neutrophils Absolute Auto 7.3 K/mm3 (1.3-6.7); Neutrophils Percent Auto 64.7 % (45.5-73.1); Platelet Count Result 391 k/mm3 (150-375); Red Blood Count 4.79 M/mm3 (4.2-5.4); White Blood Count 11.3 K/mm3 (4.5-10.0)
--- NOTE | 2023-02-22 23:16 | PC.NURSE ---
Assumed care of pt from EDDIE Chavez at this time.
[2023-02-22 23:17] LABS: Alanine Aminotransferase 18 U/L (6-35); Albumin Level 4.7 g/dL (3.5-5.1); Alkaline Phosphatase 79 U/L (38-126); Anion Gap 13 mmol/L (8-16); Aspartate Amino Transferase 26 U/L (14-36); Bilirubin,Total 0.6 mg/dL (0.2-1.3); Blood Urea Nitrogen 23 mg/dL (7-17); Carbon Dioxide 27 mmol/L (22-30); Chloride 100 mmol/L (98-107); Estimated CRCL calculation 35 ml/min; Estimated Glomerular Filt Rate 40; Glucose 137 mg/dL (65-110); Potassium 4.4 mmol/L (3.4-5.0); Sodium 140 mmol/L (137-145)
[2023-02-22] MEDS: ACETAMINOPHEN 500 MG TABLET 1000 MG PO (23:19)
[2023-02-22 23:28] LABS: Troponin I < 0.012 ng/mL (0.000-0.034)
[2023-02-22 23:32] VITALS: BP 115/50; PULSE 98; RESP 16; O2SAT 97
[2023-02-22 23:40] LABS: Anisocytosis 2+ (NORMAL); Hypochromasia 1+ (NORMAL); Platelet Estimate Adequate (Adequate); Poikilocytosis 1+ (NORMAL); Polychromasia 1+ (NORMAL); Schistocytes None Seen (NORMAL)
[2023-02-22 23:59] LABS: Add Urine Microscopic? YES; Appearance Urine Turbid (Clear); Bacteria Urine None Seen /hpf; Bilirubin Urine Negative (Negative); Blood Urine 1+ (Negative); Color Urine Yellow (Yellow); Glucose Urine UA Negative (Negative); Granular Casts Urine Present /lpf; Ketones Urine Trace mg/dL (Negative); Leukocyte Esterase Ur 2+ LEU/UL (Negative); Mucus Urine Present /lpf; Nitrate Urine Negative (Negative); Non Pathogenic Casts >20; Protein Urine 3+ mg/dL (Negative); Specific Grav Ur 1.029 (1.001-1.035); Squamous Epithelial Cell Urine Occasional /hpf (Few); WBC Urine >100 /hpf; pH Urine 5.5 (5.0-9.0)
[2023-02-23 00:02] VITALS: BP 119/56; PULSE 94; RESP 16; TEMP 36.7; O2SAT 96
--- NOTE | 2023-02-23 00:06 | WC.ED.TRAUMA ---
HPI - Trauma General Chief Complaint: Extremity Injury, Upper Stated Complaint: L arm broken Time Seen by Provider: 02/22/23 21:14 History of Present Illness HPI narrative: 77-year-old female with history of chronic pain syndrome, type 2 diabetes, CKD, hypothyroidism, hyperlipidemia, hypertension reports for evaluation with her for evaluation of left shoulder pain after a fall that occurred 2 nights ago. Patient states she woke up in the middle night to go to the bathroom when she fell to the ground. She is unsure what caused her to fall and states it could have been because she was dizzy or because she tripped on something. She states she landed on her left shoulder and hit her head on the ground. She denies LOC. She is complaining of neck pain, back pain, hip pain, left upper extremity pain. She had x-rays of her left shoulder performed by her PCP today which showed a ?likely comminuted 1 part fracture of the proximal left humerus? and was advised to come to the ED for further evaluation. She denies chest pain shortness of breath. Of note, patient had a spinal stimulator placed in her lumbar region approximately 12 days ago by pain management. Related Data Home Medications Medication Instructions Recorded Confirmed blood sugar diagnostic (Accu-Chek #10 ea 03/03/19 03/10/22 Karishma Plus test strips) lancets (Accu-Chek Softclix #50 ea 03/03/19 03/10/22 Lancets) pen needle, diabetic 32 gauge x #50 ea 03/03/19 03/10/22 1/4 (Novofine 32) polyethylene glycol 3350 17 17 gm PO DAILY 03/03/19 03/10/22 gram/dose oral powder promethazine 25 mg tablet 25 mg PO TID PRN 03/03/19 03/10/22 Allergies Allergy/AdvReac Type Severity Reaction Status Date / Time fluconazole Allergy Severe RASH, Verified 09/15/22 18:04 BLISTERS Sulfa (Sulfonamide Allergy Severe SWELLING Verified 09/15/22 18:04 Antibiotics) sulfamethoxazole Allergy Severe SWELLING Verified 09/15/22 18:04 trimethoprim Allergy Severe SWELLING Verified 09/15/22 18:04 cephalexin Allergy Mild Rash, Verified 09/15/22 18:04 THROAT BURNING naproxen Allergy Mild RASH- ALEVE Verified 09/15/22 18:04 NSAIDS (Non-Steroidal Allergy Mild AVOIDS R/T Verified 09/15/22 18:04 Anti-Inflamma KIDNEY FUNCTION Penicillins Allergy Mild RASH Verified 09/15/22 18:04 Quinolones Allergy Mild RASH Verified 09/15/22 18:04 tetracycline Allergy Mild RASH Verified 09/15/22 18:04 clarithromycin Allergy Unknown Rash Verified 09/15/22 18:04 levofloxacin Allergy Unknown rash Verified 09/15/22 18:04 nitrofurantoin Allergy Unknown rash Verified 09/15/22 18:04 sulfamethizole Allergy Unknown Rash Verified 09/15/22 18:04 Tetracyclines Allergy Unknown rash Verified 09/15/22 18:04 morphine Allergy Numbness Verified 09/15/22 18:04 Review of Systems Review of Systems: CONSTITUTIONAL: Denies fever, chills, or sweats. EYES: Denies visual changes, redness, or discharge. ENT: Denies rhinorrhea, congestion, sore throat, or otalgia. CARDIOVASCULAR: Denies chest pain, palpitations, or edema. RESPIRATORY: Denies cough or dyspnea. GASTROINTESTINAL: Denies abdominal pain, nausea, vomiting, or diarrhea. GENITOURINARY: Denies dysuria or hematuria. SKIN: Denies rash or itching. MUSCULOSKELETAL: See HPI NEUROLOGIC: Denies headache, numbness, or weakness. PSYCHIATRIC: Denies anxiety or depression. [facility] Past Medical History Medical History Abdominal pain Acute UTI Adhesive capsulitis of right shoulder Anxiety with depression Benign essential hypertension BMI 32.0-32.9,adult BMI 33.0-33.9,adult BMI 34.0-34.9,adult BMI 35.0-35.9,adult BMI 36.0-36.9,adult Bowel perforation BPPV (benign paroxysmal positional vertigo) Bronchitis Cataract Cervicalgia Chronic back pain Chronic pain syndrome Chronic shoulder pain Colon cancer screening DM type 2 causing CKD stage 1 Encounter for Medicare annual wellness exam Encounter fo
[2023-02-23 00:41] VITALS: BP 111/56; PULSE 94; RESP 16; O2SAT 98
[2023-02-23] MEDS: CEFUROXIME AXETIL 250 MG TABLET PO (00:41)
[2023-02-23] MEDS: oxyCODONE HCL (*CRX) 5 MG TAB IR PO (00:41)
== END 2023-02-23 00:52 | disposition home or self-care (01) ==
PROVIDERS: Emergency Provider Physician Assistant; PCP Internal Medicine
DX: S42.202A Unspecified fracture of upper end of left humerus, initial encounter for closed fracture (principal); D50.9 Iron deficiency anemia, unspecified; R82.998 Other abnormal findings in urine; E11.22 Type 2 diabetes mellitus with diabetic chronic kidney disease; I12.9 Hypertensive chronic kidney disease with stage 1 through stage 4 chronic kidney disease, or unspecified chronic kidney disease; N18.1 Chronic kidney disease, stage 1; E78.5 Hyperlipidemia, unspecified; E03.9 Hypothyroidism, unspecified; E55.9 Vitamin D deficiency, unspecified; G89.4 Chronic pain syndrome; N32.81 Overactive bladder; Z96.653 Presence of artificial knee joint, bilateral; Z87.440 Personal history of urinary (tract) infections; Z87.442 Personal history of urinary calculi; Z90.49 Acquired absence of other specified parts of digestive tract; Z79.85 Long-term (current) use of injectable non-insulin antidiabetic drugs; Z79.84 Long term (current) use of oral hypoglycemic drugs; R94.31 Abnormal electrocardiogram [ECG] [EKG]; M47.812 Spondylosis without myelopathy or radiculopathy, cervical region; M48.02 Spinal stenosis, cervical region; M48.14 Ankylosing hyperostosis [Forestier], thoracic region; M47.814 Spondylosis without myelopathy or radiculopathy, thoracic region; M47.816 Spondylosis without myelopathy or radiculopathy, lumbar region; Z98.1 Arthrodesis status; W19.XXXA Unspecified fall, initial encounter
CPT/HCPCS: 36415; 70450; 71045; 72125; 72128; 72131; 73030; 73070; 73521; 80053; 81001; 82948; 84484; 85025; 87086; 87088; 93005; 99284; A4565; A9270

== ENCOUNTER 2023-05-09 15:24 | Outpatient (CLI) | payer BC, MEDICARE, SELFPAY ==
--- NOTE | ~2023-05-09 | XR_ITS ---
EXAMINATION: XR abdomen/kub 1V DATE: 05/09/2023 16:06 INDICATION: Abdominal pain TECHNIQUE: A supine view of the abdomen on 3 radiographs was obtained. COMPARISON: 05/16/2022 FINDINGS: No dilated loops of bowel to suggest obstruction. No significant change in a 7 mm stone projecting ov er the upper pole of the right kidney. 12 mm stone projecting over the lower pole of the left kidney which may have been present but obscured by the power supply for a spinal stimulator on the prior janie dy. The spinal stimulator leads project over the central canal of the upper lumbar and lower thoracic spine with lead tips at the levels of the T9-T10 and T11-T12 disc spaces. L3 and L4 laminectomies wi th L3-L5 posterior spinal fusion with bilateral vertical lisbet and pedicle screw fixation. There is inc reased lucency surrounding the bilateral pedicle screws at L5 which suggests possible loosening. Visu alized mid to lower lungs are clear. Heart size within normal limits for AP technique. IMPRESSION: 1. Bilateral nephrolithiasis. 2. Instrumented L3-L5 posterior spinal fusion with bilateral vertical lisbet and pedicle screw fixation. There are some increased lucency surrounding the bilateral L5 screws which suggests possible looseni ng. Reviewed, dictated and finalized at location A. HER GRADER IMPRESSION: 1. Bilateral nephrolithiasis. 2. Instrumented L3-L5 posterior spinal fusion with bilateral vertical lisbet and p edicle screw fixation. There are some increased lucency surrounding the bilater al L5 screws which suggests possible loosening.
--- NOTE | ~2023-05-09 | XR_ITS ---
XR cervical spine 4-5V DATE: 05/09/2023 16:06 INDICATION: Neck pain radiating down left upper extremity. TECHNIQUE: Flexion and extension and neutral lateral views. AP and open-mouth views. COMPARISON: 02/22/2023 CT cervical spine FINDINGS: There is diffuse osteopenia. C1 and C2 are normally aligned and the odontoid process is intact. Status post anterior interbody cervical spine surgical fusion at C5-6. Otherwise the cervical interspaces are relatively well preserved. There is anterior spurring, most pr ominent at C3-4. No instability is noted on flexion or extension. Bilateral hyperostosis frontalis interna, not likely of any clinical significance. IMPRESSION: Status post interbody anterior cervical spine fusion at C5-6 Mild cervical spondylosis Reviewed, dictated and finalized at location B. ATOLOGICAL SURGEON
== END 2023-05-09 15:25 | disposition home or self-care (01) ==
PROVIDERS: PCP Internal Medicine; Visit Provider Nurse Practitioner Family
DX: R10.9 Unspecified abdominal pain (principal); K59.00 Constipation, unspecified; M54.2 Cervicalgia; R51.9 Headache, unspecified; N20.0 Calculus of kidney; Z98.1 Arthrodesis status; M47.892 Other spondylosis, cervical region
CPT/HCPCS: 72050; 74018

== ENCOUNTER 2023-05-29 00:46 | Day surgery (SDC) | payer BC, MEDICARE, SELFPAY ==
[2023-05-09 10:41] VITALS: BMI 31.4
--- NOTE | 2023-05-09 11:57 | PC.NURSE ---
Patient spouse, Blade, handles patients care due to mild confusion and memory loss. Agrees to hold Iron for 5 days prior to procedure. Agrees to bring remote for spinal cord stimulator. Has decided on his own that he will hold Ozympic injection dose the week of procedure. Informed that we only ask to hold Ozympic if not diabetic, but based on symptoms patient is having and side affects of Ozympic he is going to hold it.
--- NOTE | 2023-05-25 11:41 | SUR.PREOP ---
Patient called regarding upcoming procedure. Voicemail left regarding appointment times.
--- NOTE | 2023-05-28 20:38 | PM.HPGS ---
History of Present Illness History of Present Illness Consent: Risks, benefits, and alternatives have been discussed and questions answered. Patient agrees to proceed with procedure. Chief complaint: Iron Deficiency Anemia,GERD,Change in bowel habits Narrative: Tash Sawyer is a 77 year old female here for new onset TEZ anemia. Labs reviewed from 02/22/2023 with microcytic anemia with hgb of 9.5 and hct of 35.3, MVC of 72. RDW elevated at 23.0. Plt count WNLs but high end of normal . Repeat HGB/HCt on 04/14/2023 with H/H trending downward to 8.8/32.3. ? Her iron was low at 20, with low iron saturation at 4, ferritin low at 1.? TIBC elevated at 454. Back in February she reports episodes of rectal bleeding with and without bowel movements. ? States she would have blood in the toilet but not much blood on tissue. She denies passing any clots.? Rectal bleeding lasted for approximately a month and then resolved, she has not seen any since. Her last EGD/colonoscopy was in 2018? EGD noted nerd, duodenitis, and flatten folds.? Esophageal biopsies noted reflux like changes, small bowel bx consistent with duodenitis. Colonoscopy was normal with no obvious polyps but colon prep was suboptimal.? currently she is on pantoprazole 40 mg b.i.d..? States despite PPIs twice a day she still has issues with reflux and nausea vomiting.? 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 Encounter for Medicare annual wellness exam Encounter for routine adult health examination with abnormal findings Esophageal dysmotility Facial pain Fall Follow up GERD (gastroesophageal reflux disease) Headache Hemoptysis History of fall History of kidney stones Hospital discharge follow-up Hypercalcemia Hyperlipidemia Hypothyroidism (acquired) TEZ (iron deficiency anemia) Kidney stone Microscopic hematuria Nocturia On retirement drug therapy Orthostatic hypotension Overactive bladder Pedal edema Personal history of other diseases of the digestive system PVC's (premature ventricular contractions) Rectal bleeding Screening for cervical cancer Stress Syncope URI (upper respiratory infection) Vitamin D deficiency Surgical History Surgical History H/O abdominal surgery H/O cervical spine surgery H/O spinal fusion History of bowel resection History of total bilateral knee replacement Family History Family History Mother Patient's mother is , Onset Age: 91 Father Carcinoma of colon Family history of Alzheimer's disease Family history of heart disease in male family member before age 55 Unknown FH: prostate cancer Other Cerebrovascular accident Diabetes mellitus Family history of arthritis Hypertension Social History Social History Social History: caffeine use Smoking status: Never smoker Second hand tobacco smoke exposure: No Alcohol intake: current Drinks per week: 3 Alcohol use details: rare occasional, one drink jayden few weeks Substance use: never Substance use type: does not use Lack of Transportation: No Lack of Food: Never True Current Housing: I Have Housing Concerned About Future Housing: No Difficulty Paying Gas/Electric Bills: No
[2023-05-29 12:00] VITALS: BP 147/65; PULSE 96; RESP 18; TEMP 36.6; O2SAT 97
[2023-05-29] MEDS: LACTATED RINGERS 1,000 ML 150 ML IV CONT (12:27)
[2023-05-29 12:46] LABS: Glucose Point of Care 241 mg/dl (65-105)
--- NOTE | 2023-05-29 12:50 | WPDANESEPPF ---
Anes - Initial Pre Proc Eval Procedure: Operation Date: 05/29/23 13:00 Proposed Procedures p Esophagogastroduodenoscopy & Colonoscopy - Ezra Gong MD Date/Time: 05/29/23 12:50 Surgeon: Ezra Gong MD Pre Op Diagnosis: Iron Deficiency Anemia,GERD,Change in bowel habits Patient Data Age: 77 Gender: F Height: 1.68 m Weight: 88.5 kg Allergies Allergy/AdvReac Type Severity Reaction Status Date / Time fluconazole Allergy Severe RASH, Verified 05/09/23 11:02 BLISTERS Sulfa (Sulfonamide Allergy Severe SWELLING Verified 05/09/23 11:02 Antibiotics) sulfamethoxazole Allergy Severe SWELLING Verified 05/09/23 11:02 trimethoprim Allergy Severe SWELLING Verified 05/09/23 11:02 cephalexin Allergy Mild Rash, Verified 05/09/23 11:02 THROAT BURNING naproxen Allergy Mild RASH- ALEVE Verified 05/09/23 11:02 NSAIDS (Non-Steroidal Allergy Mild AVOIDS R/T Verified 05/09/23 11:02 Anti-Inflamma KIDNEY FUNCTION Penicillins Allergy Mild RASH Verified 05/09/23 11:02 Quinolones Allergy Mild RASH Verified 05/09/23 11:02 tetracycline Allergy Mild RASH Verified 05/09/23 11:02 clarithromycin Allergy Unknown Rash Verified 05/09/23 11:02 levofloxacin Allergy Unknown rash Verified 05/09/23 11:02 nitrofurantoin Allergy Unknown rash Verified 05/09/23 11:02 sulfamethizole Allergy Unknown Rash Verified 05/09/23 11:02 Tetracyclines Allergy Unknown rash Verified 05/09/23 11:02 morphine Allergy Numbness Verified 05/09/23 11:02 Home Medications Medication Instructions Recorded Confirmed Type blood sugar diagnostic (Accu-Chek #10 ea 03/03/19 05/09/23 History Karishma Plus test strips) lancets (Accu-Chek Softclix #50 ea 03/03/19 05/09/23 History Lancets) pen needle, diabetic 32 gauge x #50 ea 03/03/19 05/09/23 History 1/4 (Novofine 32) polyethylene glycol 3350 17 17 gm PO DAILY 03/03/19 05/09/23 History gram/dose oral powder blood-glucose meter (Accu-Chek #1 ea 07/08/19 05/09/23 Rx Karishma Plus Meter) blood sugar diagnostic (OneTouch #100 ea 03/02/20 05/09/23 Rx Verio test strips) kgxvdlgkgx-wyurotbvijohe-ocsczszf 1 tablet PO Q6H PRN pain #30 tabs 10/27/21 05/09/23 Rx 50 mg-325 mg-40 mg tablet nystatin-triamcinolone 100,000 1 applic topical TID #30 grams 06/02/22 05/09/23 Rx unit/g-0.1 % topical cream azelastine 137 mcg (0.1 %) nasal See Rx Instructions .Route 06/22/22 05/09/23 Rx spray aerosol .COMPLEX #60 mL metformin 1,000 mg tablet See Rx Instructions .Route 07/17/22 05/09/23 Rx .COMPLEX #180 tabs diazepam 5 mg tablet 5 mg PO BID-TID PRN anxiety #90 01/29/23 05/09/23 Rx tabs pantoprazole 40 mg tablet,delayed See Rx Instructions .Route 01/29/23 05/09/23 Rx release .COMPLEX #180 tabs duloxetine 60 mg capsule,delayed See Rx Instructions .Route 02/16/23 05/09/23 Rx release .COMPLEX #90 caps oxycodone 5 mg capsule 2.5 mg PO Q8H PRN pain #10 caps 02/23/23 05/09/23 Rx glimepiride 2 mg tablet See Rx Instructions .Route 03/14/23 05/09/23 Rx .COMPLEX #270 tabs Ozempic 0.25 mg or 0.5 mg (2 mg/3 See Rx Instructions .Route 04/16/23 05/09/23 Rx mL) subcutaneous pen injector .COMPLEX #3 mL (semaglutide) meclizine 25 mg tablet 25 mg PO TID PRN motion sickness 04/16/23 05/09/23 Rx #10 tabs rosuvastatin 20 mg tablet 20 mg PO DAILY #90 tabs 04/16/23 05/09/23 Rx midodrine 2.5 mg tablet See Rx Instructions .Route 04/26/23 05/09/23 Rx .COMPLEX #180 tabs ferrous sulfate 325 mg (65 mg 325 mg PO BID #180 tabs 04/30/23 05/09/23 Rx iron) tablet aspirin 81 mg capsule 81 mg PO DAILY 05/09/23 05/09/23 History duloxetine 30 mg capsule,delayed See Rx Instructions .Route 05/16/23 Rx release .COMPLEX #90 caps gabapentin 100 mg capsule See Rx Instructions .Route 05/16/23 Rx .COMPLEX #270 caps levothyroxine 112 mcg tablet See Rx Instructions .Route 05/16/23 Rx .COMPLEX #90 tabs Myrbetriq 25 mg tablet,extended 25 mg PO DAILY #90 tabs 05/23/23 Rx release (mirabegron)
[2023-05-29] MEDS: BENZOCAINE (*SP) 60 ML SPRAY CAN (HURRICAINE) 1 SPRAY MUCOUS MEM (13:24)
[2023-05-29 13:48] VITALS: BP 111/67; PULSE 90; RESP 24; O2SAT 97
[2023-05-29 13:58] VITALS: BP 122/64; PULSE 87; RESP 23; O2SAT 97
[2023-05-29 14:08] VITALS: BP 128/65; PULSE 87; RESP 20; O2SAT 97
== END 2023-05-29 14:28 | disposition home or self-care (01) ==
PROVIDERS: PCP Internal Medicine; Visit Provider Internal Medicine Gastroenterology
PROC: 0DJ08ZZ Inspection of Upper Intestinal Tract, Via Natural or Artificial Opening Endoscopic (ICD-10-PCS; CPT 43235; principal; 2023-05-29 13:00)
DX: D50.9 Iron deficiency anemia, unspecified (principal); K21.00 Gastro-esophageal reflux disease with esophagitis, without bleeding; K31.7 Polyp of stomach and duodenum; K22.70 Barrett's esophagus without dysplasia; R19.4 Change in bowel habit; E11.22 Type 2 diabetes mellitus with diabetic chronic kidney disease; N18.1 Chronic kidney disease, stage 1; E78.5 Hyperlipidemia, unspecified; E03.9 Hypothyroidism, unspecified; E55.9 Vitamin D deficiency, unspecified
CPT/HCPCS: 43239; 45330; 82948; 88305; J7120

== ENCOUNTER 2023-06-07 17:16 | Outpatient (NON) | payer BC, MEDICARE, SELFPAY ==
[2023-06-07 17:38] LABS: Appearance Urine Clear (Clear); Bacteria Urine None Seen /hpf; Bilirubin Urine Negative (Negative); Color Urine Yellow (Yellow); Glucose Urine UA 3+ mg/dL (Negative); Ketones Urine Negative (Negative); Leukocyte Esterase Ur 1+ LEU/UL (Negative); Nitrate Urine Negative (Negative); Non Pathogenic Casts 0-2; Protein Urine 1+ mg/dL (Negative); Specific Grav Ur 1.023 (1.001-1.035); Squamous Epithelial Cell Urine None seen /hpf (Few); Urobilinogen Urine 0.2 mg/dL (<2.0); WBC Urine >100 /hpf
[2023-06-07 17:43] LABS: Add Urine Microscopic? YES
== END 2023-06-07 17:17 | disposition home or self-care (01) ==
LOC: ANHLAB 17:17
PROVIDERS: PCP Internal Medicine; Visit Provider Internal Medicine
DX: R35.0 Frequency of micturition (principal); R30.0 Dysuria
CPT/HCPCS: 81001; 87077; 87086; 87088; 87181

== ENCOUNTER 2023-06-28 00:54 | Day surgery (SDC) | payer BC, MEDICARE, OTHER, SELFPAY ==
[2023-06-22 12:53] VITALS: BMI 31.1
--- NOTE | 2023-06-26 09:53 | SUR.PREOP ---
Patient called regarding upcoming procedure. Voicemail left regarding appointment times..
[2023-06-28 12:36] VITALS: BP 101/57; PULSE 116; RESP 18; TEMP 36.8; O2SAT 97
--- NOTE | 2023-06-28 12:44 | WPDANESEPPF ---
Anes - Initial Pre Proc Eval Procedure: Operation Date: 06/28/23 14:00 Proposed Procedures p Colonoscopy - Donte Cheng MD Date/Time: 06/28/23 12:44 Surgeon: Donte Cheng MD Pre Op Diagnosis: Iron deficiency anemia Patient Data Age: 77 Gender: F Height: 1.65 m Weight: 86.4 kg Last Vital Signs Temp 98.2 F 06/28/23 12:36 Pulse 116 H 06/28/23 12:36 Resp 18 06/28/23 12:36 BP 101/57 L 06/28/23 12:36 Pulse Ox 97 06/28/23 12:36 O2 Del Method Room Air 06/28/23 12:36 Allergies Allergy/AdvReac Type Severity Reaction Status Date / Time fluconazole Allergy Severe RASH, Verified 06/28/23 12:34 BLISTERS Sulfa (Sulfonamide Allergy Severe SWELLING Verified 06/28/23 12:34 Antibiotics) sulfamethoxazole Allergy Severe SWELLING Verified 06/28/23 12:34 trimethoprim Allergy Severe SWELLING Verified 06/28/23 12:34 cephalexin Allergy Mild Rash, Verified 06/28/23 12:34 THROAT BURNING naproxen Allergy Mild RASH- ALEVE Verified 06/28/23 12:34 NSAIDS (Non-Steroidal Allergy Mild AVOIDS R/T Verified 06/28/23 12:34 Anti-Inflamma KIDNEY FUNCTION Penicillins Allergy Mild RASH Verified 06/28/23 12:34 Quinolones Allergy Mild RASH Verified 06/28/23 12:34 tetracycline Allergy Mild RASH Verified 06/28/23 12:34 clarithromycin Allergy Unknown Rash Verified 06/28/23 12:34 levofloxacin Allergy Unknown rash Verified 06/28/23 12:34 nitrofurantoin Allergy Unknown rash Verified 06/28/23 12:34 sulfamethizole Allergy Unknown Rash Verified 06/28/23 12:34 Tetracyclines Allergy Unknown rash Verified 06/28/23 12:34 morphine Allergy Numbness Verified 06/28/23 12:34 Home Medications Medication Instructions Recorded Confirmed Type blood sugar diagnostic (Accu-Chek #10 ea 03/03/19 05/09/23 History Karishma Plus test strips) lancets (Accu-Chek Softclix #50 ea 03/03/19 05/09/23 History Lancets) pen needle, diabetic 32 gauge x #50 ea 03/03/19 05/09/23 History 1/4 (Novofine 32) polyethylene glycol 3350 17 17 gm PO DAILY PRN Constipation 03/03/19 06/22/23 History gram/dose oral powder blood-glucose meter (Accu-Chek #1 ea 07/08/19 05/09/23 Rx Karishma Plus Meter) blood sugar diagnostic (OneTouch #100 ea 03/02/20 05/09/23 Rx Verio test strips) azelastine 137 mcg (0.1 %) nasal See Rx Instructions .Route 06/22/22 06/22/23 Rx spray aerosol .COMPLEX #60 mL pantoprazole 40 mg tablet,delayed See Rx Instructions .Route 01/29/23 06/22/23 Rx release .COMPLEX #180 tabs oxycodone 5 mg capsule 2.5 mg PO Q8H PRN pain #10 caps 02/23/23 06/28/23 Rx meclizine 25 mg tablet 25 mg PO TID PRN motion sickness 04/16/23 06/22/23 Rx #10 tabs rosuvastatin 20 mg tablet 20 mg PO DAILY #90 tabs 04/16/23 06/22/23 Rx midodrine 2.5 mg tablet See Rx Instructions .Route 04/26/23 06/22/23 Rx .COMPLEX #180 tabs ferrous sulfate 325 mg (65 mg 325 mg PO BID #180 tabs 04/30/23 06/22/23 Rx iron) tablet aspirin 81 mg capsule 81 mg PO DAILY 05/09/23 06/22/23 History duloxetine 30 mg capsule,delayed See Rx Instructions .Route 05/16/23 06/28/23 Rx release .COMPLEX #90 caps gabapentin 100 mg capsule See Rx Instructions .Route 05/16/23 06/22/23 Rx .COMPLEX #270 caps levothyroxine 112 mcg tablet See Rx Instructions .Route 05/16/23 06/28/23 Rx .COMPLEX #90 tabs metformin 1,000 mg tablet See Rx Instructions .Route 05/29/23 06/22/23 Rx .COMPLEX #180 tabs glimepiride 2 mg tablet See Rx Instructions .Route 06/11/23 06/22/23 Rx .COMPLEX #270 tabs Ozempic 0.25 mg or 0.5 mg (2 mg/3 See Rx Instructions .Route 06/20/23 06/22/23 Rx mL) subcutaneous pen injector .COMPLEX #3 mL (semaglutide) diazepam 5 mg tablet 5 mg PO BID-TID PRN anxiety #90 06/27/23 06/28/23 Rx tabs duloxetine 60 mg capsule,delayed See Rx Instructions .Route 06/28/23 06/28/23 Rx release .COMPLEX #90 caps Patient hx anesthesia problems: none Family hx anesthesia problems: none Results Review: All pre-o
[2023-06-28] MEDS: LACTATED RINGERS 1,000 ML 150 ML IV CONT (12:46)
--- NOTE | 2023-06-28 12:51 | SUR.PREOP ---
Patient's blood sugar is 272. Dr. Mitchell notified.
[2023-06-28 12:55] LABS: Glucose Point of Care 272 mg/dl (65-105)
--- NOTE | 2023-06-28 13:09 | PM.HPGS ---
History of Present Illness History of Present Illness Consent: Risks, benefits, and alternatives have been discussed and questions answered. Patient agrees to proceed with procedure. Chief complaint: Iron deficiency anemia Narrative: Tash Chew is a 77 year old female here for colonoscopy. She came originally few weeks ago but had poor bowel prep, Dr Gong aborted procedure and only performed EGD. Previous colonoscopy 2019 without polyps. 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 Encounter for Medicare annual wellness exam Encounter for routine adult health examination with abnormal findings Esophageal dysmotility Facial pain Fall Follow up GERD (gastroesophageal reflux disease) Headache Hemoptysis History of fall History of kidney stones Hospital discharge follow-up Hypercalcemia Hyperlipidemia Hypothyroidism (acquired) TEZ (iron deficiency anemia) Kidney stone Microscopic hematuria Nocturia On [facility] drug therapy Orthostatic hypotension Overactive bladder Pedal edema Personal history of other diseases of the digestive system PVC's (premature ventricular contractions) Rectal bleeding Screening for cervical cancer Stress Syncope URI (upper respiratory infection) Vitamin D deficiency Surgical History Surgical History H/O abdominal surgery H/O cervical spine surgery H/O spinal fusion History of bowel resection History of total bilateral knee replacement Family History Family History Mother Patient's mother is , Onset Age: 91 Father Carcinoma of colon Family history of Alzheimer's disease Family history of heart disease in male family member before age 55 Unknown FH: prostate cancer Other Cerebrovascular accident Diabetes mellitus Family history of arthritis Hypertension Social History Social History Social History: caffeine use Smoking status: Never smoker Second hand tobacco smoke exposure: No Alcohol intake: current Drinks per week: 3 Alcohol use details: rare occasional, one drink jayden few weeks Substance use: never Substance use type: does not use Lack of Transportation: No Lack of Food: Never True Current Housing: I Have Housing Concerned About Future Housing: No Difficulty Paying Gas/Electric Bills: No Difficulty Paying for Meds: No Currently Unemployed: No Difficulty w/ Childcare or Family Care: No Living arrangements: with family Occupation/Education: retired Gender identity (if verbalized by the patient): Female Spiritual care concerns: No Meds Home Medications and Allergies Home Medications Medication Instructions Recorded Confirmed Type blood sugar diagnostic (Accu-Chek #10 ea 03/03/19 05/09/23 History Karishma Plus test strips) lancets (Accu-Chek Softclix #50 ea 03/03/19 05/09/23 History Lancets) pen needle, diabetic 32 gauge x #50 ea 03/03/19 05/09/23 History 1/4 (Novofine 32) polyethylene glycol 3350 17 17 gm PO DAILY PRN Constipation 03/03/19 06/22/23 History gram/dose oral powder blood-glucose meter (Accu-Chek #1 ea 07/08/19 05/09/23 Rx Karishma Plus Meter) blood sugar diagnostic (OneTouch #100 ea 03/02/20
[2023-06-28 13:32] VITALS: BP 111/48; PULSE 92; RESP 19; O2SAT 98
[2023-06-28 13:42] VITALS: BP 108/48; PULSE 90; RESP 23; O2SAT 94
[2023-06-28 13:52] VITALS: BP 106/52; PULSE 88; RESP 20; O2SAT 95
== END 2023-06-28 14:15 | disposition home or self-care (01) ==
PROVIDERS: PCP Internal Medicine; Visit Provider Internal Medicine Gastroenterology
PROC: 0DJD8ZZ Inspection of Lower Intestinal Tract, Via Natural or Artificial Opening Endoscopic (ICD-10-PCS; CPT 45378; principal; 2023-06-28 14:00)
DX: D50.9 Iron deficiency anemia, unspecified (principal); K64.8 Other hemorrhoids; I10 Essential (primary) hypertension; E11.9 Type 2 diabetes mellitus without complications; E83.52 Hypercalcemia; E78.5 Hyperlipidemia, unspecified; E03.9 Hypothyroidism, unspecified; K21.9 Gastro-esophageal reflux disease without esophagitis; F41.8 Other specified anxiety disorders; H81.10 Benign paroxysmal vertigo, unspecified ear; N32.81 Overactive bladder; G89.29 Other chronic pain; M54.9 Dorsalgia, unspecified; M25.519 Pain in unspecified shoulder; I49.3 Ventricular premature depolarization; E66.9 Obesity, unspecified; Z68.31 Body mass index [BMI] 31.0-31.9, adult; Z79.891 Long term (current) use of opiate analgesic; Z79.82 Long term (current) use of aspirin; Z79.84 Long term (current) use of oral hypoglycemic drugs; Z79.85 Long-term (current) use of injectable non-insulin antidiabetic drugs; Z98.890 Other specified postprocedural states; Z98.1 Arthrodesis status; Z90.49 Acquired absence of other specified parts of digestive tract; Z80.0 Family history of malignant neoplasm of digestive organs; Z80.42 Family history of malignant neoplasm of prostate; Z82.49 Family history of ischemic heart disease and other diseases of the circulatory system
CPT/HCPCS: 45378; 82948; J2704; J7120

== ENCOUNTER 2023-09-24 09:38 | Inpatient (IN) | payer MEDICARE, OTHER, SELFPAY ==
--- NOTE | ~2023-09-24 | CT_ITS ---
EXAMINATION: CT knee RT wo con DATE: 09/24/2023 11:44 INDICATION: Right lower limb swelling and bruising. TECHNIQUE: Computed tomography (CT) of the right knee was performed without intravenous contrast. Aut omated exposure control and iterative reconstruction technique were employed. The dose-length product was 843.02 mGy-cm. COMPARISON: Right knee radiographs 09/24/2023 FINDINGS: There is a total right knee arthroplasty with patellar resurfacing in near-anatomic alignme nt. There is a comminuted periprosthetic fracture of the proximal anterior tibia with involvement of the tibial tubercle. There is up to 6 mm displacement. There is a small knee joint effusion. IMPRESSION: 1. Comminuted periprosthetic fracture of proximal anterior tibia. 2. Small knee joint effusion. Reviewed, dictated and finalized at location E.
--- NOTE | ~2023-09-24 | XR_ITS ---
XR ankle RT min 3V Ordering provider: Arlette Mosquera PA-C History: . fall Sunday, pain, bruising . Comparison: None. FINDINGS: BONES: Possible fracture in the medial and lateral malleolus. Follow-up advised. Calcaneal spur. JOINT SPACES: Narrowing of the intertarsal joints. SOFT TISSUES: Soft tissue swelling over the medial malleolus. IMPRESSION: Possible acute fracture in the medial and lateral malleolus. Follow-up advised. Reviewed, dictated and finalized at location A.
--- NOTE | ~2023-09-24 | XR_ITS ---
XR knee RT min 4V Ordering provider: Arlette Mosquera PA-C History: . fall Sunday, pain, bruising . Comparison: None. FINDINGS: BONES: No definite acute fracture or dislocation. Bony fragment is seen anteriorly in the upper tibia which may be postoperative. Fracture cannot be excluded. Clinical evaluation advised. JOINT SPACES: Total knee arthroplasty. SOFT TISSUES: Normal. IMPRESSION: No definite acute osseous abnormality right knee. Bony fragment seen anteriorly in the area of the up per tibial which may be postoperative or acute fracture. Clinical evaluation advised. Reviewed, dictated and finalized at location A. IMPRESSION: No definite acute osseous abnormality right knee. Bony fragment seen anteriorly in the area of the upper tibial which may be postoperative or acute fracture. Clinical evaluation advised.
--- NOTE | ~2023-09-24 | XR_ITS ---
EXAMINATION: XR hip RT min 3V w AP pelvis DATE: 09/24/2023 10:48 INDICATION: Right hip injury. Fall. TECHNIQUE: An anteroposterior view of the pelvis and 3 views of right hip were obtained. COMPARISON: Pelvis and right hip radiographs 02/22/2023 FINDINGS: There are changes of posterior fusion procedure in lumbar spine. Bone alignment is normal. No fracture. There is mild osteoarthritis of the hips. Osteoarthritis pubis is noted. IMPRESSION: 1. Mild osteoarthritis of the hips. Reviewed, dictated and finalized at location E.
--- NOTE | ~2023-09-24 | CT_ITS ---
EXAMINATION: CT cervical spine wo con DATE: 09/24/2023 10:25 INDICATION: Head injury. Fall. TECHNIQUE: Computed tomography (CT) of the cervical spine was performed without intravenous contrast. Automated exposure control and iterative reconstruction technique were employed. The dose-length pro duct was 439.41 mGy-cm. COMPARISON: CT cervical spine 02/22/2023 FINDINGS: There is 4 degrees dextrocurvature of cervical spine. There are changes of anterior fusion procedure at C5-C6 with healed interbody bone graft. Vertebral body heights are normal. There is mild ly decreased disc height at C4-C5 and C6-C7. The following disc levels are specifically discussed: C2-C3: There is mild bilateral uncovertebral joint osteoarthritis. There is mild right and severe lef t facet joint osteoarthritis. There is no neural foraminal stenosis. There is no central canal stenos is. C3-C4: There is mild bilateral uncovertebral joint osteoarthritis. There is mild bilateral facet join t osteoarthritis. There is no neural foraminal stenosis. There is mild central canal stenosis. C4-C5: There is mild bilateral uncovertebral joint osteoarthritis. There is moderate bilateral facet joint osteoarthritis. There is mild left neural foraminal stenosis. There is mild central canal steno sis. C5-C6: There is mild right and moderate left uncovertebral joint hypertrophy. There is ankylosis of l eft facet joint without hypertrophy. There is mild left neural foraminal stenosis. There is mild cent ral canal stenosis. C6-C7: There is mild bilateral uncovertebral joint osteoarthritis. There is mild right and severe lef t facet joint osteoarthritis. There is mild left neural foraminal stenosis. There is mild central can al stenosis. C7-T1: There is no uncovertebral joint osteoarthritis. There is severe bilateral facet joint osteoart hritis. There is no neural foraminal stenosis. There is no central canal stenosis. IMPRESSION: 1. No fracture. 2. Mild cervical spondylosis. 3. Anterior fusion procedure at C5-C6. Reviewed, dictated and finalized at location E.
--- NOTE | ~2023-09-24 | CT_ITS ---
EXAMINATION: CT brain wo con DATE: 09/24/2023 10:24 INDICATION: Head injury. TECHNIQUE: Computed tomography (CT) of the head was performed without intravenous contrast. The mA wa s adjusted according to patient size. Iterative reconstruction technique was employed. The dose-lengt h product was 681.00 mGy-cm. COMPARISON: Head CT 02/22/2023 FINDINGS: There is an old infarct in the left thalamus. There are scattered areas of low attenuation in the cerebral white matter. There is an arachnoid cyst posterior to right cerebral hemisphere. Ther e is no intracranial hemorrhage, acute infarction, or abnormal intracranial mass lesion. The ventricl es are normal in size. There is mild mucosal thickening in the ethmoid sinuses. The mastoid air cells are normal. There is frontal skull hyperostosis (hyperostosis frontalis interna), a normal variant. There are likely changes of ocular lens replacement surgeries. IMPRESSION: 1. 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 2. Mild nonspecific cerebral white matter disease, which likely represents chronic small vessel ische paul disease. Reviewed, dictated and finalized at location E. IMPRESSION: 1. 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 2. 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
--- NOTE | ~2023-09-24 | XR_ITS ---
XR tibia fibula RT 2V Ordering provider: Arlette Mosquera PA-C History: . fall Sunday, pain, bruising . Comparison: None. FINDINGS: BONES: Fracture lateral malleolus. Fracture medial malleolus. JOINT SPACES: Normal ankle joint. Total knee arthroplasty. SOFT TISSUES: Soft tissue swelling over the medial and lateral malleolus. IMPRESSION: Fracture of the medial and lateral malleoli. No other fractures seen. Reviewed, dictated and finalized at location A.
[2023-09-24 09:48] VITALS: BP 150/77; PULSE 96; RESP 19; TEMP 36.4; O2SAT 96
--- NOTE | 2023-09-24 10:08 | ED.EXTPRO ---
HPI - Extremity Problem General Chief complaint: Extremity Problem,Nontraumatic <Arlette Mosquera PA-C - Last Filed: 09/24/23 13:23> Stated complaint: RLE pain <MARY Aranda Last Filed: 09/24/23 13:23> Time Seen by Provider: 09/24/23 09:43 <MARY Aranda Last Filed: 09/24/23 13:23> Source: patient, family and old records reviewed <MARY Aranda Last Filed: 09/24/23 13:23> Mode of arrival: EMS <MARY Aranda Last Filed: 09/24/23 13:23> Limitations: no limitations and clinical condition <MARY Arnada Last Filed: 09/24/23 13:23> History of Present Illness HPI Narrative: Patient is a 77-year-old female who presents the ED via EMS with report of a fall. Patient reports she fell in her bathroom on Sunday. She was using her cane for assistance with walking when she tripped and fell, landing on her right side. She did hit her head. Unsure of LOC. She complains of pain to her right leg. She has since developed bruising. She states she has been unable to ambulate since the fall on Sunday and her has been helping her with all activities. She then contacted EMS today. Currently A&OX2. States she is not on any blood thinners. now at bedside reports patient has history of frequent falls, history of prior spinal fusions, right knee replacement x2. Reports patient has issues with her memory, refused to come to the hospital over the weekend. She is on oxycodone for pain control at home and took 1 pill this morning. <MARY Aranda Last Filed: 09/24/23 13:23> Related Data Home medications: Home Medications Medication Instructions Recorded Confirmed blood sugar diagnostic (Accu-Chek #10 ea 03/03/19 09/24/23 Karishma Plus test strips) lancets (Accu-Chek Softclix #50 ea 03/03/19 09/24/23 Lancets) pen needle, diabetic 32 gauge x #50 ea 03/03/19 09/24/23/ (Novofine 32) polyethylene glycol 3350 17 17 gm PO DAILY PRN Constipation 03/03/19 09/24/23 gram/dose oral powder aspirin 81 mg capsule 81 mg PO DAILY 05/09/23 09/24/23 One-A-Day 50 Plus 1 cap PO DAILY 09/24/23 09/24/23 biotin 1,000 mcg chewable tablet 1,000 mcg PO DAILY 09/24/23 09/24/23 cholecalciferol (vitamin D3) 125 125 mcg PO DAILY 09/24/23 09/24/23 mcg (5,000 unit) tablet (Vitamin D3) coffee extract 100 mg-phosphatidyl 1 cap PO DAILY 09/24/23 09/24/23 serine 100 mg capsule (Neuriva Original) diazepam 5 mg tablet 5 mg PO HS PRN anxiety 09/24/23 09/24/23 dimenhydrinate 50 mg tablet 100 mg PO DAILY 09/24/23 09/24/23 diphenhydramine HCl 25 mg tablet 25 mg PO HS 09/24/23 09/24/23 duloxetine 30 mg capsule,delayed 30 mg PO DAILY 09/24/23 09/24/23 release duloxetine 60 mg capsule,delayed 60 mg PO DAILY 09/24/23 09/24/23 release ginkgo biloba 40 mg tablet 60 mg PO DAILY 09/24/23 09/24/23 hydrocodone 5 mg-acetaminophen 325 1 tablet PO TID PRN pain 09/24/23 09/24/23 mg tablet levothyroxine 112 mcg tablet 112 mcg PO DAILY 09/24/23 09/24/23 magnesium 500 mg tablet 500 mg PO DAILY 09/24/23 09/24/23 melatonin 10 mg tablet 20 mg PO HS 09/24/23 09/24/23 zinc gluconate 50 mg tablet 50 mg PO DAILY 09/24/23 09/24/23 <Arlette Mosquera PA-C - Last Filed: 09/24/23 13:23> Allergies/Adverse reactions: Allergies Allergy/AdvReac Type Severity Reaction Status Date / Time fluconazole Allergy Severe RASH, Verified 09/24/23 09:59 BLISTERS Sulfa (Sulfonamide Allergy Severe SWELLING Verified 09/24/23 09:59 Antibiotics) sulfamethoxazole Allergy Severe SWELLING Verified 09/24/23 09:59 trimethoprim Allergy Severe SWELLING Verified 09/24/23 09:59 cephalexin Allergy Mild Rash, Verified 09/24/23 09:59 THROAT BURNING naproxen Allergy Mild RASH- ALEVE Verified 09/24/23 09:59 NSAIDS (Non-Steroidal Allergy Mild AVOIDS R/T Verified 09/24/23 09:59 Anti-Inflamma KIDNEY FUNCTION Penicillins Pedro
[2023-09-24 11:14] LABS: Basophils Absolute Auto 0.1 K/mm3 (0.0-0.1); Basophils Percent Auto 0.7 % (0.2-1.2); Eosinophils Absolute Auto 0.2 K/mm3 (0-0.3); Eosinophils Percent Auto 1.9 % (0-4.4); Hematocrit 37.1 % (37.0-47.0); Hemoglobin 10.5 g/dL (12.0-15.0); Immature Granulocyte Absolute 0.02 K/mm3 (0.00-0.031); Immature Granulocyte Percent A 0.2 % (0-0.5); Lymphocytes Absolute Auto 1.78 K/mm3 (0.9-3.2); Lymphocytes Percent Auto 19.5 % (18.3-44.2); Mean Corpuscular HGB Conc 28.3 g/dl (32-36); Mean Corpuscular Hemoglobin 23.5 pg (26-34); Mean Platelet Volume 10.5 fl (7.4-10.4); Monocytes Absolute Auto 0.7 K/mm3 (0.1-0.6); Neutrophils Absolute Auto 6.4 K/mm3 (1.3-6.7); Neutrophils Percent Auto 69.7 % (45.5-73.1); Platelet Count Result 264 k/mm3 (150-375); Red Blood Count 4.47 M/mm3 (4.2-5.4); Red Cell Distribution Width 23.4 % (11.5-14.5); White Blood Count 9.2 K/mm3 (4.5-10.0)
[2023-09-24 11:24] LABS: INR 1.1; Partial Thromboplastin Time 21.6 Seconds (22.3-36.8); Prothrombin Time 14.3 Seconds (11.1-14.7)
[2023-09-24 11:25] LABS: Alanine Aminotransferase 18 U/L (6-35); Albumin Level 4.2 g/dL (3.5-5.1); Alkaline Phosphatase 82 U/L (38-126); Anion Gap 8 mmol/L (4-12); Aspartate Amino Transferase 19 U/L (14-36); Bilirubin,Total 0.7 mg/dL (0.2-1.3); Blood Urea Nitrogen 21 mg/dL (7-17); Calcium 10.2 mg/dL (8.4-10.2); Carbon Dioxide 30 mmol/L (22-30); Chloride 101 mmol/L (98-107); Creatine Kinase 32 U/L (30-135); Estimated CRCL calculation 44 ml/min; Estimated Glomerular Filt Rate 48; Glucose 375 mg/dL (65-110); Potassium 4.2 mmol/L (3.4-5.0); Sodium 139 mmol/L (137-145)
[2023-09-24 11:38] LABS: Anisocytosis 1+; Hypochromasia 1+; Platelet Estimate Adequate (Adequate); Schistocytes None Seen
[2023-09-24] MEDS: HYDROcodone/acetaminophen (*CRX) 5-325 MG TABLET 1 TAB PO ×2 (13:01→20:16)
[2023-09-24 13:02] LABS: Appearance Urine Turbid (Clear); Bacteria Urine 4+ /hpf; Bilirubin Urine Negative (Negative); Blood Urine 2+ (Negative); Color Urine Yellow (Yellow); Glucose Urine UA 3+ mg/dL (Negative); Ketones Urine Trace mg/dL (Negative); Leukocyte Esterase Ur 2+ LEU/UL (Negative); Need Manual Microscopic Reviewed; Nitrate Urine Negative (Negative); Protein Urine 2+ mg/dL (Negative); RBC Urine 21-50 /hpf (0-2); Specific Grav Ur 1.029 (1.001-1.035); Squamous Epithelial Cell Urine None Seen /hpf (Few); Urobilinogen Urine 0.2 mg/dL (<2.0); WBC Urine >100 /hpf (0-3); pH Urine 6.5 (5.0-9.0)
[2023-09-24 13:24] VITALS: BP 135/61; PULSE 87; RESP 16; O2SAT 98
--- NOTE | 2023-09-24 13:24 | PC.NURSE ---
Jag received report from ER nurse Leonel 09/23 0164.
[2023-09-24 13:46] VITALS: BP 141/65; PULSE 88; RESP 17; TEMP 36.6; O2SAT 94
[2023-09-24 13:49] VITALS: BMI 34.5
[2023-09-24 14:11] LABS: Add Urine Microscopic? YES
--- NOTE | 2023-09-24 14:27 | PM.IMHP ---
H&P: HPI History of Present Illness Date/Time: 09/24/23 14:30 Chief Complaint: Right leg pain after fall. Narrative: This is a 77-year-old female with history of migraines, hypertension, hyperlipidemia, chronic kidney disease, peptic ulcer, kidney stones, arthritis, anemia, type 2 diabetes mellitus, hypothyroidism, depression, and anxiety who presented to the emergency department via EMS from home for evaluation of right leg pain after a fall on Sunday. The patient provides the following history. She got tripped up in her cane while walking in the bathroom on Sunday, causing her to land on her right side and strike her head on the floor. She is uncertain if there was loss of consciousness. Since that time she has developed increasing pain and swelling in her right leg and she has been unable to bear weight since that time. Today she decided to come in for evaluation. Her pain seems to center more so over the right knee and in the right ankle. She also complains of dysuria for several days. She denies fever, chills, sweats, headache, chest pain, shortness of breath, nausea, vomiting, and diarrhea. In the ED: She was afebrile on arrival with stable vital signs. Labs are significant for WBC count of 9.2, hemoglobin 10.5, BUN 21, creatinine 1.10, glucose 375. Urine is positive for 2+ protein, 3+ glucose, trace ketones, 2+ blood, 2+ leukocyte esterase, 21 to 50 RBC, greater than 100 WBC, and 4+ bacteria. Imaging showed possible acute fractures of the right medial and lateral malleolus and a periprosthetic fracture of the proximal anterior tibia. ED provider spoke with Dr. Canas who recommended an immobilizer and nonweightbearing on that leg. She is being admitted in this setting for PT/OT and rehab placement. Review of Systems Review of Systems: 12 systems were reviewed and are negative except for as per HPI. [facility] Past Medical History Medical History (Updated 09/24/23 @ 22:35 by Diana Hensley PA-C) Adhesive capsulitis of right shoulder Anxiety with depression Benign essential hypertension Bowel perforation Chronic kidney disease Chronic pain syndrome Diffuse idiopathic skeletal hyperostosis Esophageal dysmotility Generalized osteoarthritis of multiple sites Hyperlipidemia Hypothyroidism Iron deficiency anemia Kidney stones Overactive bladder Syncope Type 2 diabetes mellitus Vitamin D deficiency Surgical History Surgical History History of bowel resection Perforated duodenal ulcer. History of spinal surgery History of total bilateral knee replacement Status post insertion of spinal cord stimulator Family History Family History Mother Patient's mother is , Onset Age: 91 Father Carcinoma of colon Family history of Alzheimer's disease Family history of heart disease in male family member before age 55 Unknown FH: prostate cancer Other Cerebrovascular accident Diabetes mellitus Family history of arthritis Hypertension Social History Social History Social History: Surrogate medical decision maker: Ronald Bradford, spouse. Code status: Full code. Smoking status: Never smoker Second hand tobacco smoke exposure: No Alcohol use details: Rare alcohol use in moderation. Substance use: never Substance use type: does not use Do You Feel Safe in your Home?: Yes Lack of Transportation: No Lack of Food: Never True Current Housing: I Have Housing Concerned About Future Housing: No Difficulty Paying Gas/Electric Bills: No Difficulty Paying for Meds: No Currently Unemployed: No Education: Master's Degree or Higher Difficulty w/ Childcare or Family Care: No Living arrangements: with family Occupation/Education: retired Spiritual care concerns: No Meds Home Medications and Allerg
--- NOTE | 2023-09-24 14:34 | ADMGEN ---
This patient, Tash Chew, was admitted to Medical Room 243-01 at 1330. Patient/family oriented to hospital policies and general routines including ID bracelet, bed and alarms, visiting hours, pain management, procedures, bathroom and other care routines, personal items, smoking policy, room service/diet, and visiting hours. Information on how to activate the Rapid Response Team has been discussed. Patient/Family are encouraged to report perceived risks to care and to ask questions if they do not understand what they are told or what they should do.
--- NOTE | 2023-09-24 15:39 | PM.CNOR ---
Assessment and Plan Assessment and plan (1) Periprosthetic fracture around internal prosthetic right knee joint: Qualifiers: Encounter type: initial encounter Qualified Code(s): M97.11XA - Periprosthetic fracture around internal prosthetic right knee joint, initial encounter <TOM Silverman - Last Filed: 09/24/23 16:16> Code(s): M97.11XA - Periprosthetic fracture around internal prosthetic right knee joint, initial encounter <TOM Silverman - Last Filed: 09/24/23 16:16> Status: Acute <TOM Silverman - Last Filed: 09/24/23 16:16> (2) Fracture of lateral malleolus of right fibula: Qualifiers: Encounter type: initial encounter Fracture alignment: nondisplaced Fracture type: closed Qualified Code(s): S82.64XA - Nondisplaced fracture of lateral malleolus of right fibula, initial encounter for closed fracture <TOM Silverman - Last Filed: 09/24/23 16:16> Code(s): S82.61XA - Displaced fracture of lateral malleolus of right fibula, initial encounter for closed fracture <TOM Silverman - Last Filed: 09/24/23 16:16> Status: Acute <TOM Silverman - Last Filed: 09/24/23 16:16> (3) Fracture of medial malleolus of right tibia: Qualifiers: Encounter type: initial encounter Fracture alignment: nondisplaced Fracture type: closed Qualified Code(s): S82.54XA - Nondisplaced fracture of medial malleolus of right tibia, initial encounter for closed fracture <TOM Silverman - Last Filed: 09/24/23 16:16> Code(s): S82.51XA - Displaced fracture of medial malleolus of right tibia, initial encounter for closed fracture <TOM Silverman - Last Filed: 09/24/23 16:16> Status: Acute <TOM Silverman - Last Filed: 09/24/23 16:16> Assessment and Plan: Patient seen and examined. Radiographic images reviewed personally. Non displaced periprosthetic fracture of the left proximal tibia involving the tibial tubercle, appears stable. The revision total knee implants do not appear loose. TTWB with a knee immobilizer is indicated. ROM limited to 45 degrees for 3 weeks, then gradually increase as tolerated. Non displaced fractures of the medial and lateral malleoli are stable. Will protect with a CAM boot. May remove intermittently while in bed. Anticipate 4-6 weeks of rehab. Will increase to partial weight bearing at 4 weeks. Risk of fracture displaced discussed with the patient and her . Repeat radiographs at 2 weeks and 6 weeks. Follow up in the clinic in 6 weeks. <Shad Canas MD - Last Filed: 09/24/23 19:02> History of Present Illness HPI Consult date: 09/24/23 <TOM Silverman - Last Filed: 09/24/23 16:16> 09/24/23 <Shad Canas MD - Last Filed: 09/24/23 19:02> Chief complaint: GLF/R Knee Periprosthetic Fx/R Ankle Fx <TOM Silverman - Last Filed: 09/24/23 16:16> Narrative: Patient was admitted to the hospital after a fall in her home morning 09/20/23. She tripped on her cane in the night. Her finally convinced her to come to the hospital. Notes she is on chronic pain medication. She walks with a cane but does not walk far. She has had knee replacements. Notes some memory issues. Pain currently in her both of her knees. Right knee pain is the worst. Pain in the right ankle as well. Knee immobilizer and splint intact. No new numbness or tingling. Notes she has always had pain in her right knee. It has had a revision and has been seen by many doctors and still has pain. <TOM Silverman - Last Filed: 09/24/23 16:16> Review of Systems Review of Systems: All systems reviewed & are unremarkable except as noted in HPI and below <TOM Silverman - Last Filed: 09/24/23 16:16> PMFSH Past Medical History Medical History: Medical History (Updated 09/23/
--- NOTE | 2023-09-24 15:44 | PCRCNOTE ---
RT spoke to patient. Patient states she does not wear a CPAP/ BIPAP at home. RN aware.
[2023-09-24 16:55] LABS: Glucose Point of Care 409 mg/dl (65-105)
[2023-09-24] MEDS: INSULIN ASPART (*BKC) 100 UNITS/ML 8 UNITS SUB-Q (17:29)
[2023-09-24 19:04] LABS: Hemoglobin A1C 8.4 % (<5.7)
[2023-09-24 19:23] VITALS: BP 144/63; PULSE 85; RESP 16; TEMP 36.8; O2SAT 93
[2023-09-24 19:50] LABS: Glucose Point of Care 352 mg/dl (65-105)
[2023-09-24 20:00] VITALS: PULSE 82; RESP 16; O2SAT 94
[2023-09-24] MEDS: INSULIN ASPART (*BKC) 100 UNITS/ML SUB-Q (20:16)
[2023-09-24] MEDS: GABAPENTIN 100 MG CAPSULE BY MOUTH (23:20)
[2023-09-24] MEDS: diphenhydrAMINE HCl CAP 25 MG CAPSULE PO (23:20)
[2023-09-25 03:41] VITALS: BP 142/57; PULSE 97; RESP 16; TEMP 36.7; O2SAT 94
[2023-09-25 06:03] LABS: Hematocrit 35.5 % (37.0-47.0); Hemoglobin 10.4 g/dL (12.0-15.0); Mean Corpuscular HGB Conc 29.3 g/dl (32-36); Mean Corpuscular Hemoglobin 24.1 pg (26-34); Mean Corpuscular Volume 82.4 fl (80-100); Mean Platelet Volume 10.1 fl (7.4-10.4); Platelet Count Result 263 k/mm3 (150-375); Red Blood Count 4.31 M/mm3 (4.2-5.4); Red Cell Distribution Width 23.1 % (11.5-14.5)
[2023-09-25 06:17] LABS: Anion Gap 8 mmol/L (4-12); Blood Urea Nitrogen 20 mg/dL (7-17); Calcium 10.2 mg/dL (8.4-10.2); Carbon Dioxide 29 mmol/L (22-30); Chloride 101 mmol/L (98-107); Estimated CRCL calculation 40 ml/min; Estimated Glomerular Filt Rate 44; Glucose 319 mg/dL (65-110); Magnesium 2.2 mg/dL (1.6-2.3); Potassium 4.2 mmol/L (3.4-5.0); Sodium 138 mmol/L (137-145)
[2023-09-25] MEDS: LEVOTHYROXINE SODIUM 112 MCG TABLET PO (06:40)
[2023-09-25] MEDS: HYDROcodone/acetaminophen (*CRX) 5-325 MG TABLET 1 TAB PO ×3 (06:54→22:10)
[2023-09-25 07:54] LABS: Glucose Point of Care 341 mg/dl (65-105)
[2023-09-25] MEDS: MIDODRINE HCL 2.5 MG TABLET BY MOUTH ×2 (08:43→16:45)
[2023-09-25] MEDS: metFORMIN HCL 500 MG TABLET BY MOUTH ×2 (08:43→16:45)
[2023-09-25] MEDS: ASPIRIN 81 MG CHEWABLE TABLET PO (08:43)
[2023-09-25] MEDS: DULoxetine HCL 30 MG CAPSULE.DR PO (08:43)
[2023-09-25] MEDS: DULoxetine HCL 60 MG CAPSULE.DR PO (08:43)
[2023-09-25] MEDS: GABAPENTIN 100 MG CAPSULE BY MOUTH ×3 (08:43→16:45)
[2023-09-25] MEDS: GLIMEPIRIDE 2 MG TABLET 4 MG BY MOUTH (08:43)
[2023-09-25] MEDS: ROSUVASTATIN 20 MG TABLET PO (08:43)
[2023-09-25] MEDS: MULTIVITAMINS /C LUTEIN (CENTRUM SILVER) TABLET *BKC 1 TAB PO (08:44)
[2023-09-25] MEDS: ENOXAPARIN 40 MG/0.4 ML SYRINGE SUB-Q (08:44)
[2023-09-25] MEDS: MAGNESIUM 27 MG TABLET (500 MG MAG GLUCONATE) PO (08:48)
[2023-09-25] MEDS: CHOLECALCIFEROL 5,000 UNITS TABLET 5000 UNITS PO (08:48)
[2023-09-25] MEDS: SOLIFENACIN 5 MG TABLET 10 MG PO (08:48)
[2023-09-25] MEDS: INSULIN ASPART (*BKC) 100 UNITS/ML SUB-Q ×4 (08:51→20:53)
--- NOTE | 2023-09-25 09:28 | PCPTNOTE ---
Attempted PT evaluation, pt needing CAM boot. RN contacting Ortho surgeon. Will follow.
--- NOTE | 2023-09-25 09:31 | PM.PNORT ---
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: Qualifiers: Encounter type: initial encounter Qualified Code(s): M97.11XA - Periprosthetic fracture around internal prosthetic right knee joint, initial encounter Code(s): M97.11XA - Periprosthetic fracture around internal prosthetic right knee joint, initial encounter Status: Acute (2) Fracture of lateral malleolus of right fibula: Qualifiers: Encounter type: initial encounter Fracture alignment: nondisplaced Fracture type: closed Qualified Code(s): S82.64XA - Nondisplaced fracture of lateral malleolus of right fibula, initial encounter for closed fracture Code(s): S82.61XA - Displaced fracture of lateral malleolus of right fibula, initial encounter for closed fracture Status: Acute (3) Fracture of medial malleolus of right tibia: Qualifiers: Encounter type: initial encounter Fracture alignment: nondisplaced Fracture type: closed Qualified Code(s): S82.54XA - Nondisplaced fracture of medial malleolus of right tibia, initial encounter for closed fracture Code(s): S82.51XA - Displaced fracture of medial malleolus of right tibia, initial encounter for closed fracture Status: Acute Plan Follow up on fractures. No changes. states that her confusion has gotten a little worse. She has a UTI. No changes in right leg. No new numbness or tingling. CAM boot ordered today. Plan on placeing the boot under the knee immobilizer. Will put on tomorrow. Discharge planning in progress. She will likely need 4-6 weeks of rehab. Lovenox ordered for DVT prophylaxsis. Non displaced periprosthetic fracture of the left proximal tibia involving the tibial tubercle, appears stable. The revision total knee implants do not appear loose. TTWB with a knee immobilizer is indicated. ROM limited to 45 degrees for 3 weeks, then gradually increase as tolerated. Non displaced fractures of the medial and lateral malleoli are stable. Will protect with a CAM boot. May remove intermittently while in bed. Anticipate 4-6 weeks of rehab. Will increase to partial weight bearing at 4 weeks. Risk of fracture displaced discussed with the patient and her . Repeat radiographs at 2 weeks and 6 weeks. Follow up in the clinic in 6 weeks. Subjective Subjective Date/Time Seen: 09/25/23 09:31 Interval history: Patient resting comfortably in bed. Patient states she overall does not feel well. She was found to have a UTI. No other complaints. Review of Systems Review of Systems: All systems reviewed & are unremarkable except as noted in HPI and below Exam Narrative: Overweight 77 y/o female patient. Alert and Oriented to place and self. Does not know the year. 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 Significant edema distally. Moderate ecchymosis at the knee. Immobilizer and short posterior leg split intact. Joint effusion. No warmth or erythema. Diffuse Tenderness over the medial joint line left knee. Range of motion limited by pain. Normal light touch sensation. No skin lesions. Calf tenderness. Objective Data Vital Signs Vital Signs: Vital Signs - 24 hr 09/24/23 09:48 09/24/23 13:24 09/24/23 13:46 Temperature 97.6 F 97.8 F Pulse Rate 96 87 88 Respiratory Rate 19 16 17 Blood Pressure 150/77 H 135/61 141/65 H Pulse Oximetry 96 98 94 Oxygen Delivery Room Air 09/24/23 19:23 09/24/23 20:00 09/25/23 03:41 Temperature 98.2 F 98.1 F Pulse Rate 85 82 97 Respiratory Rate 16 16 16 Blood Pressure 144/63 H 142/57 H Pulse Oximetry 93 94 94 Oxygen Delivery Room Air Intake/Output Intake/Output: Intake & Output 09/22/23 09/23/23 09/24/23 09/25/23 23:59 23:59 23:59 23:59 Intake Total 720 350 Output Total 150 500 Balance 570 -150 Meds/Results Medications: Active Medications Generic Name Dose Route Start Last Admin Trade
--- NOTE | 2023-09-25 09:42 | PCOTNOTE ---
Pt needs a CAM boot for her R foot prior to working with therapy. CAM boot not currently present and waiting on one to be delivered to pt. Will continue to follow.
[2023-09-25 12:02] LABS: Glucose Point of Care 341 mg/dl (65-105)
--- NOTE | 2023-09-25 13:36 | PM.IMPN ---
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 Recommending nonsurgical treatment. TTWB with a knee immobilizer is indicated. ROM limited to 45 degrees for 3 weeks. Analgesics as needed. PT/OT, will need placement. (2) Fracture of lateral malleolus of right fibula: Qualifiers: Encounter type: initial encounter Fracture alignment: nondisplaced Fracture type: closed Qualified Code(s): S82.64XA - Nondisplaced fracture of lateral malleolus of right fibula, initial encounter for closed fracture Code(s): S82.61XA - Displaced fracture of lateral malleolus of right fibula, initial encounter for closed fracture Status: Acute Assessment and Plan: See #1 Needs CAM boot Repeat radiographs at 2 weeks and 6 weeks. Follow up in the clinic in 6 weeks. (3) Fracture of medial malleolus of right tibia: Qualifiers: Encounter type: initial encounter Fracture alignment: nondisplaced Fracture type: closed Qualified Code(s): S82.54XA - Nondisplaced fracture of medial malleolus of right tibia, initial encounter for closed fracture Code(s): S82.51XA - Displaced fracture of medial malleolus of right tibia, initial encounter for closed fracture Status: Acute Assessment and Plan: See #1 Needs CAM boot Repeat radiographs at 2 weeks and 6 weeks. Follow up in the clinic in 6 weeks. (4) Urinary tract infection: Code(s): N39.0 - Urinary tract infection, site not specified Status: Acute Assessment and Plan: Urine is grossly abnormal and she endorses dysuria. She has an extensive list of antibiotic allergies but states she is able to take most of them with Benadryl and she will be started on ceftriaxone. Urine culture pending. Adjust antibiotic therapy to culture results. (5) Type 2 diabetes mellitus: Code(s): E11.9 - Type 2 diabetes mellitus without complications Status: Acute Assessment and Plan: Insulin Lispro sliding scale, Accu-checks qAc and HS and Hold oral hypoglycemics Initiate hypoglycemic precautions (6) Hypothyroidism: Code(s): E03.9 - Hypothyroidism, unspecified Status: Acute Assessment and Plan: Continue home medication (7) Benign essential hypertension: Code(s): I10 - Essential (primary) hypertension Status: Acute Assessment and Plan: continue home medication (8) Chronic kidney disease: Code(s): N18.9 - Chronic kidney disease, unspecified Status: Acute Assessment and Plan: Stable. Subjective Date/time seen: 09/25/23 13:36 Interval history: Patient drowsy when I was in the room. She is alert and oriented x3. patient states that she did have some pain medication and this is help with her pain control although she is still uncomfortable. Encouraged her to work with PT and OT. After discussing with CC possible placement to into BILL. Exam Narrative: GENERAL: Comfortable, no acute distress HENMT: moist mucous membranes EYES: EOM intact b/l NECK: no lymphadenopathy RESPIRATORY: clear to auscultation, no increased respiratory effort CARDIO: Regular rate and rhythm GI: soft, nontender, bowel sounds present SKIN/EXTREMITIES: right knee/ leg wrapped and in a brace. NEURO: PROM intact, answers questions appropriately, A&O x3 Objective Data Vital Signs Vital Signs:
[2023-09-25 14:00] VITALS: BP 146/60; PULSE 95; RESP 20; TEMP 36.4; O2SAT 92
[2023-09-25] MEDS: GLIMEPIRIDE 2 MG TABLET BY MOUTH (16:45)
[2023-09-25] MEDS: polyethylene glycoL 3350 17 GM POWD.PACK PO (16:45)
[2023-09-25 16:51] LABS: Glucose Point of Care 336 mg/dl (65-105)
[2023-09-25] MEDS: ACETAMINOPHEN 325 MG TABLET 650 MG BY MOUTH (18:16)
[2023-09-25 19:52] LABS: Glucose Point of Care 359 mg/dl (65-105)
[2023-09-25 20:00] VITALS: BP 153/80; PULSE 100; RESP 18; TEMP 36.7; O2SAT 96
[2023-09-25] MEDS: diphenhydrAMINE HCl CAP 25 MG CAPSULE PO (20:52)
[2023-09-25] MEDS: MELATONIN 5 MG TABLET 20 MG PO (22:03)
[2023-09-26] VITALS (7 sets, daily range): BP systolic 112–136; BP diastolic 40–63; PULSE 92–108; RESP 16–18; TEMP 36.8–37.8; O2SAT 91–94; BMI 10.0
[2023-09-26 05:39] LABS: Hemoglobin 10.5 g/dL (12.0-15.0); Mean Corpuscular HGB Conc 28.4 g/dl (32-36); Mean Corpuscular Hemoglobin 23.5 pg (26-34); Mean Platelet Volume 10.6 fl (7.4-10.4); Platelet Count Result 297 k/mm3 (150-375); Red Blood Count 4.46 M/mm3 (4.2-5.4); White Blood Count 8.8 K/mm3 (4.5-10.0)
[2023-09-26 05:46] LABS: Anion Gap 6 mmol/L (4-12); Blood Urea Nitrogen 25 mg/dL (7-17); Calcium 10.4 mg/dL (8.4-10.2); Carbon Dioxide 32 mmol/L (22-30); Chloride 101 mmol/L (98-107); Estimated CRCL calculation 37 ml/min; Estimated Glomerular Filt Rate 40; Glucose 268 mg/dL (65-110); Potassium 4.2 mmol/L (3.4-5.0); Sodium 139 mmol/L (137-145)
[2023-09-26] MEDS: HYDROcodone/acetaminophen (*CRX) 5-325 MG TABLET 1 TAB PO ×3 (06:14→21:37)
[2023-09-26] MEDS: LEVOTHYROXINE SODIUM 112 MCG TABLET PO (06:14)
[2023-09-26 07:56] LABS: Glucose Point of Care 288 mg/dl (65-105)
[2023-09-26] MEDS: VANCOMYCIN 1,500 MG/NS 500 ML 1,500 MG/500 ML BAG 250 MG IVPB (08:45)
[2023-09-26] MEDS: INSULIN ASPART (*BKC) 100 UNITS/ML SUB-Q ×4 (08:46→21:37)
[2023-09-26] MEDS: MULTIVITAMINS /C LUTEIN (CENTRUM SILVER) TABLET *BKC 1 TAB PO (08:47)
[2023-09-26] MEDS: DULoxetine HCL 30 MG CAPSULE.DR PO (08:47)
[2023-09-26] MEDS: SOLIFENACIN 5 MG TABLET 10 MG PO (08:47)
[2023-09-26] MEDS: GLIMEPIRIDE 2 MG TABLET 4 MG BY MOUTH (08:47)
[2023-09-26] MEDS: MAGNESIUM 27 MG TABLET (500 MG MAG GLUCONATE) PO (08:48)
[2023-09-26] MEDS: GABAPENTIN 100 MG CAPSULE BY MOUTH ×3 (08:48→16:39)
[2023-09-26] MEDS: ROSUVASTATIN 20 MG TABLET PO (08:48)
[2023-09-26] MEDS: CHOLECALCIFEROL 5,000 UNITS TABLET 5000 UNITS PO (08:48)
[2023-09-26] MEDS: DULoxetine HCL 60 MG CAPSULE.DR PO (08:48)
[2023-09-26] MEDS: ASPIRIN 81 MG CHEWABLE TABLET PO (08:48)
[2023-09-26] MEDS: MIDODRINE HCL 2.5 MG TABLET BY MOUTH ×2 (08:48→16:39)
[2023-09-26] MEDS: metFORMIN HCL 500 MG TABLET BY MOUTH ×2 (08:54→16:42)
[2023-09-26] MEDS: ENOXAPARIN 40 MG/0.4 ML SYRINGE SUB-Q (08:54)
[2023-09-26] MEDS: ACETAMINOPHEN 325 MG TABLET 650 MG BY MOUTH ×2 (08:59→16:42)
--- NOTE | 2023-09-26 11:17 | PM.PNORT ---
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: Qualifiers: Encounter type: initial encounter Qualified Code(s): M97.11XA - Periprosthetic fracture around internal prosthetic right knee joint, initial encounter Code(s): M97.11XA - Periprosthetic fracture around internal prosthetic right knee joint, initial encounter Status: Acute (2) Fracture of lateral malleolus of right fibula: Qualifiers: Encounter type: initial encounter Fracture alignment: nondisplaced Fracture type: closed Qualified Code(s): S82.64XA - Nondisplaced fracture of lateral malleolus of right fibula, initial encounter for closed fracture Code(s): S82.61XA - Displaced fracture of lateral malleolus of right fibula, initial encounter for closed fracture Status: Acute (3) Fracture of medial malleolus of right tibia: Qualifiers: Encounter type: initial encounter Fracture alignment: nondisplaced Fracture type: closed Qualified Code(s): S82.54XA - Nondisplaced fracture of medial malleolus of right tibia, initial encounter for closed fracture Code(s): S82.51XA - Displaced fracture of medial malleolus of right tibia, initial encounter for closed fracture Status: Acute Plan Follow up on fractures. Patient is feeling much better since having her moreira placed. Plan to work with therapy today. May remove splint and put the CAM boot on under the knee immobilizer. She is toe touch weight bearing for transfers. No new numbness or tingling. Discharge planning in progress. She will likely need 4-6 weeks of rehab. Lovenox ordered for DVT prophylaxsis. Plan on ROM of the knee limited to 45 degrees for 3 weeks then gradually increase as tolerated. May remove CAM boot while in bed. Continue ice and elevation. Will increase to partial weight bearing at 4 weeks. Risk of fracture displaced discussed with the patient and her . Repeat radiographs at 2 weeks and 6 weeks. Follow up in the clinic in 6 weeks. Subjective Subjective Date/Time Seen: 09/26/23 11:17 Interval history: Patient resting comfortably. She is feeling better today. Notes improvement after having a Moreira catheter placed. She has not worked with therapy yet. She has a boot in the room. No numbness or tingling. Review of Systems Review of Systems: All systems reviewed & are unremarkable except as noted in HPI and below Exam Narrative: Overweight 77 y/o female patient. Alert and Oriented to place and self. Does not know the year. 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 Significant edema distally. Moderate ecchymosis at the knee. Immobilizer and short posterior leg split intact. Joint effusion. No warmth or erythema. Diffuse Tenderness over the medial joint line left knee. Range of motion limited by pain. Normal light touch sensation. No skin lesions. Calf tenderness. Objective Data Vital Signs Vital Signs: Vital Signs - 24 hr 09/25/23 14:00 09/25/23 20:00 09/25/23 20:38 Temperature 97.6 F 98.1 F Pulse Rate 95 100 Respiratory Rate 20 18 Blood Pressure 146/60 H 153/80 H Pulse Oximetry 92 96 Oxygen Delivery Room Air 09/26/23 04:00 09/26/23 08:00 Temperature 98.2 F Pulse Rate 92 Respiratory Rate 18 Blood Pressure 136/53 L Pulse Oximetry 91 Oxygen Delivery Room Air Intake/Output Intake/Output: Intake & Output 09/23/23 09/24/23 09/25/23 09/26/23 23:59 23:59 23:59 23:59 Intake Total 720 1730 120 Output Total 150 1350 800 Balance 570 380 -680 Meds/Results Medications: Active Medications Generic Name Dose Route Start Last Admin Trade Name Freq PRN Reason Stop Dose Admin Acetaminophen 650 mg 09/25/23 16:47 09/26/23 08:59 Acetaminophen 325 Mg Tablet BY MOUTH 650 mg Q6HR PRN Administration Pain Rated 1-3 Hydrocodone Bitart/Acetaminophen 1 tab 09/24/23 12:58 09/25/23 14:20 Hydrocodone/Acetaminop
[2023-09-26 12:13] LABS: Glucose Point of Care 343 mg/dl (65-105)
--- NOTE | 2023-09-26 13:11 | PM.IMPN ---
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 Recommending nonsurgical treatment. TTWB with a knee immobilizer is indicated. ROM limited to 45 degrees for 3 weeks. Analgesics as needed. PT/OT, will need placement. (2) Fracture of lateral malleolus of right fibula: Qualifiers: Encounter type: initial encounter Fracture alignment: nondisplaced Fracture type: closed Qualified Code(s): S82.64XA - Nondisplaced fracture of lateral malleolus of right fibula, initial encounter for closed fracture Code(s): S82.61XA - Displaced fracture of lateral malleolus of right fibula, initial encounter for closed fracture Status: Acute Assessment and Plan: See #1 Needs CAM boot Repeat radiographs at 2 weeks and 6 weeks. Follow up in the clinic in 6 weeks. (3) Fracture of medial malleolus of right tibia: Qualifiers: Encounter type: initial encounter Fracture alignment: nondisplaced Fracture type: closed Qualified Code(s): S82.54XA - Nondisplaced fracture of medial malleolus of right tibia, initial encounter for closed fracture Code(s): S82.51XA - Displaced fracture of medial malleolus of right tibia, initial encounter for closed fracture Status: Acute Assessment and Plan: See #1 Needs CAM boot Repeat radiographs at 2 weeks and 6 weeks. Follow up in the clinic in 6 weeks. (4) Urinary tract infection: Code(s): N39.0 - Urinary tract infection, site not specified Status: Acute Assessment and Plan: Urine is grossly abnormal and she endorses dysuria. Urine culture positive for enterococcus, sensitivities pending. Rocephin transitioned to vancomycin. (5) Type 2 diabetes mellitus: Code(s): E11.9 - Type 2 diabetes mellitus without complications Status: Acute Assessment and Plan: Insulin Lispro sliding scale, Accu-checks qAc and HS and Hold oral hypoglycemics Initiate hypoglycemic precautions (6) Hypothyroidism: Code(s): E03.9 - Hypothyroidism, unspecified Status: Acute Assessment and Plan: Continue home medication (7) Benign essential hypertension: Code(s): I10 - Essential (primary) hypertension Status: Acute Assessment and Plan: continue home medication (8) Chronic kidney disease: Code(s): N18.9 - Chronic kidney disease, unspecified Status: Acute Assessment and Plan: Stable. Subjective Date/time seen: 09/26/23 13:11 Interval history: Patient need placement into SNF versus air. Worked with PT and OT today. Care coordination working with patient to get placed. Exam Narrative: GENERAL: Comfortable, no acute distress HENMT: moist mucous membranes EYES: EOM intact b/l NECK: no lymphadenopathy RESPIRATORY: clear to auscultation, no increased respiratory effort CARDIO: Regular rate and rhythm GI: soft, nontender, bowel sounds present SKIN/EXTREMITIES: right knee/ leg wrapped and in a brace. NEURO: PROM intact, answers questions appropriately, A&O x3 Objective Data Vital Signs Vital Signs: Vital Signs - 24 hr 09/25/23 14:00 09/25/23 20:00 09/25/23 20:38 Temperature 97.6 F 98.1 F Pulse Rate 95 100 Respiratory Rate 20 18 Blood Pressure 146/60 H 153/80 H Pulse Oximetry 92 96 Oxygen Delivery Room Air 09/26/23 04:00 09/26/23 08:00 09/26/23 10:24 Temperature 9
[2023-09-26] MEDS: GLIMEPIRIDE 2 MG TABLET BY MOUTH (16:42)
[2023-09-26 16:46] LABS: Glucose Point of Care 306 mg/dl (65-105)
[2023-09-26 20:25] LABS: Glucose Point of Care 434 mg/dl (65-105)
[2023-09-26] MEDS: MELATONIN 5 MG TABLET 20 MG PO (21:37)
--- NOTE | 2023-09-26 23:39 | PC.NURSE ---
Repeated blood sugar check @ approx. 2326. Blood sugar was 335. No further intervention needed per provider orders.
[2023-09-27 05:30] VITALS: BP 120/40; PULSE 110; RESP 17; TEMP 36.9; O2SAT 95
[2023-09-27 06:04] LABS: Hematocrit 35.1 % (37.0-47.0); Hemoglobin 10.5 g/dL (12.0-15.0); Immature Platelet Fraction Pct 6.4 % (0.9-11.2); Mean Corpuscular HGB Conc 29.9 g/dl (32-36); Mean Corpuscular Volume 80.3 fl (80-100); Platelet Count Result 248 k/mm3 (150-375); Red Blood Count 4.37 M/mm3 (4.2-5.4); Red Cell Distribution Width 23.4 % (11.5-14.5); White Blood Count 10.1 K/mm3 (4.5-10.0)
[2023-09-27] MEDS: HYDROcodone/acetaminophen (*CRX) 5-325 MG TABLET 1 TAB PO ×3 (06:19→22:16)
[2023-09-27] MEDS: LEVOTHYROXINE SODIUM 112 MCG TABLET PO (06:20)
[2023-09-27 06:31] LABS: Anion Gap 8 mmol/L (4-12); Blood Urea Nitrogen 34 mg/dL (7-17); Calcium 10.4 mg/dL (8.4-10.2); Carbon Dioxide 26 mmol/L (22-30); Chloride 100 mmol/L (98-107); Estimated CRCL calculation 32 ml/min; Estimated Glomerular Filt Rate 34; Glucose 304 mg/dL (65-110); Potassium 4.5 mmol/L (3.4-5.0); Sodium 134 mmol/L (137-145)
[2023-09-27 08:06] LABS: Glucose Point of Care 323 mg/dl (65-105)
--- NOTE | 2023-09-27 08:52 | PCOTNOTE ---
The patient treatment was not able to be completed. was present at bed side attempting to assist her with eating. Will follow up later today. Will plan to continue treatment per plan of care.
[2023-09-27] MEDS: ACETAMINOPHEN 325 MG TABLET 650 MG BY MOUTH (09:24)
[2023-09-27] MEDS: DULoxetine HCL 60 MG CAPSULE.DR PO (09:25)
[2023-09-27] MEDS: GABAPENTIN 100 MG CAPSULE BY MOUTH ×3 (09:25→16:32)
[2023-09-27] MEDS: metFORMIN HCL 500 MG TABLET BY MOUTH ×2 (09:25→16:32)
[2023-09-27] MEDS: ASPIRIN 81 MG CHEWABLE TABLET PO (09:25)
[2023-09-27] MEDS: GLIMEPIRIDE 2 MG TABLET 4 MG BY MOUTH (09:25)
[2023-09-27] MEDS: MULTIVITAMINS /C LUTEIN (CENTRUM SILVER) TABLET *BKC 1 TAB PO (09:25)
[2023-09-27] MEDS: MAGNESIUM 27 MG TABLET (500 MG MAG GLUCONATE) PO (09:26)
[2023-09-27] MEDS: SOLIFENACIN 5 MG TABLET 10 MG PO (09:26)
[2023-09-27] MEDS: MIDODRINE HCL 2.5 MG TABLET BY MOUTH ×2 (09:26→16:32)
[2023-09-27] MEDS: ROSUVASTATIN 20 MG TABLET PO (09:26)
[2023-09-27] MEDS: CHOLECALCIFEROL 5,000 UNITS TABLET 5000 UNITS PO (09:26)
[2023-09-27] MEDS: DULoxetine HCL 30 MG CAPSULE.DR PO (09:26)
[2023-09-27] MEDS: ENOXAPARIN 40 MG/0.4 ML SYRINGE SUB-Q (09:27)
[2023-09-27] MEDS: INSULIN ASPART (*BKC) 100 UNITS/ML SUB-Q ×3 (09:28→20:14)
--- NOTE | 2023-09-27 10:23 | PM.PNORT ---
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: Qualifiers: Encounter type: initial encounter Qualified Code(s): M97.11XA - Periprosthetic fracture around internal prosthetic right knee joint, initial encounter Code(s): M97.11XA - Periprosthetic fracture around internal prosthetic right knee joint, initial encounter Status: Acute (2) Fracture of lateral malleolus of right fibula: Qualifiers: Encounter type: initial encounter Fracture alignment: nondisplaced Fracture type: closed Qualified Code(s): S82.64XA - Nondisplaced fracture of lateral malleolus of right fibula, initial encounter for closed fracture Code(s): S82.61XA - Displaced fracture of lateral malleolus of right fibula, initial encounter for closed fracture Status: Acute (3) Fracture of medial malleolus of right tibia: Qualifiers: Encounter type: initial encounter Fracture alignment: nondisplaced Fracture type: closed Qualified Code(s): S82.54XA - Nondisplaced fracture of medial malleolus of right tibia, initial encounter for closed fracture Code(s): S82.51XA - Displaced fracture of medial malleolus of right tibia, initial encounter for closed fracture Status: Acute Plan Follow up on fractures. No change in condition. Continue current treatment plan. She has been working with therapy. She did get up to a chair for about an hour yesterday. Ortho instructions: D/C to SNF/rehab Xray in 2 weeks. Follow up in office in 6 weeks with xrays. Please call the office for appointments. [facility] . Toe-touch weight bearing for transfers with CAM boot and knee immobilizer on. May remove CAM boot while in bed. Continue ice and elevation. Keep immobilizer on while in bed and limit ROM of the knee to 45 degrees for 3 weeks. May gradually increase range of motion as tolerated after that. May be partial weight bearing with a walker and CAM boot at 4 weeks. DVT prophylaxis: continue Lovenox while in the hospital. May be discharged on 81 mg ASA twice a day. Pain medication: Oxycodone Subjective Subjective Date/Time Seen: 09/27/23 10:23 Interval history: Patient resting comfortably. Notes she continues to feel better. at bedside. States she is more confused at night. She states her abd pain from the UTI is improving. She did get up to the chair yesterday. Review of Systems Review of Systems: All systems reviewed & are unremarkable except as noted in HPI and below Exam Narrative: Overweight 77 y/o female patient. CAM boot and knee immobilizer in place. 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 Significant edema distally. Moderate ecchymosis at the knee. Immobilizer and short posterior leg split intact. Joint effusion. No warmth or erythema. Diffuse Tenderness over the medial joint line left knee. Range of motion limited by pain. Normal light touch sensation. No skin lesions. Mild Calf tenderness. Objective Data Vital Signs Vital Signs: Vital Signs - 24 hr 09/26/23 10:24 09/26/23 14:00 09/26/23 16:42 Temperature 99.3 F 100.1 F H Pulse Rate 94 Respiratory Rate 16 Blood Pressure 112/63 Pulse Oximetry 94 Oxygen Delivery Room Air 09/26/23 17:42 09/26/23 19:00 09/26/23 20:04 Temperature 99.9 F H 98.7 F 98.4 F Pulse Rate 108 H Respiratory Rate 18 Blood Pressure 113/40 L Pulse Oximetry 93 Oxygen Delivery 09/26/23 23:26 09/26/23 21:30 09/27/23 05:30 Temperature 98.7 F 98.4 F Pulse Rate 110 H Respiratory Rate 17 Blood Pressure 120/40 L Pulse Oximetry 95 Oxygen Delivery Room Air Intake/Output Intake/Output: Intake & Output 09/24/23 09/25/23 09/26/23 09/27/23 23:59 23:59 23:59 23:59 Intake Total 720 1730 1650 490 Output Total 150 1350 1500 350 Balance 570 380 150 140 Meds/Results Medications: Active Medications Generi
--- NOTE | 2023-09-27 11:36 | PM.IMPN ---
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 Recommending nonsurgical treatment. TTWB with a knee immobilizer is indicated. ROM limited to 45 degrees for 3 weeks. Analgesics as needed. PT/OT, will need placement. (2) Fracture of lateral malleolus of right fibula: Qualifiers: Encounter type: initial encounter Fracture alignment: nondisplaced Fracture type: closed Qualified Code(s): S82.64XA - Nondisplaced fracture of lateral malleolus of right fibula, initial encounter for closed fracture Code(s): S82.61XA - Displaced fracture of lateral malleolus of right fibula, initial encounter for closed fracture Status: Acute Assessment and Plan: See #1 Needs CAM boot Repeat radiographs at 2 weeks and 6 weeks. Follow up in the clinic in 6 weeks. (3) Fracture of medial malleolus of right tibia: Qualifiers: Encounter type: initial encounter Fracture alignment: nondisplaced Fracture type: closed Qualified Code(s): S82.54XA - Nondisplaced fracture of medial malleolus of right tibia, initial encounter for closed fracture Code(s): S82.51XA - Displaced fracture of medial malleolus of right tibia, initial encounter for closed fracture Status: Acute Assessment and Plan: See #1 Needs CAM boot Repeat radiographs at 2 weeks and 6 weeks. Follow up in the clinic in 6 weeks. (4) Urinary tract infection: Code(s): N39.0 - Urinary tract infection, site not specified Status: Acute Assessment and Plan: Urine is grossly abnormal and she endorses dysuria. Urine culture positive for enterococcus, sensitivities pending. Rocephin transitioned to vancomycin. (5) Type 2 diabetes mellitus: Code(s): E11.9 - Type 2 diabetes mellitus without complications Status: Acute Assessment and Plan: Insulin Lispro sliding scale, Accu-checks qAc and HS and Hold oral hypoglycemics Initiate hypoglycemic precautions (6) Hypothyroidism: Code(s): E03.9 - Hypothyroidism, unspecified Status: Acute Assessment and Plan: Continue home medication (7) Benign essential hypertension: Code(s): I10 - Essential (primary) hypertension Status: Acute Assessment and Plan: continue home medication (8) Chronic kidney disease: Code(s): N18.9 - Chronic kidney disease, unspecified Status: Acute Assessment and Plan: Stable. Subjective Date/time seen: 09/27/23 11:36 Interval history: Waiting for SNF placement. Plan to discontinue Marcus catheter. Discussed with care coordination and she should be able to discharge tomorrow. She worked better with therapy today. She has no complaints at this time. Exam Narrative: GENERAL: Comfortable, no acute distress HENMT: moist mucous membranes EYES: EOM intact b/l NECK: no lymphadenopathy RESPIRATORY: clear to auscultation, no increased respiratory effort CARDIO: Regular rate and rhythm GI: soft, nontender, bowel sounds present SKIN/EXTREMITIES: right knee/ leg wrapped and in a brace. NEURO: PROM intact, answers questions appropriately, A&O x3 Objective Data Vital Signs Vital Signs: Vital Signs - 24 hr 09/26/23 14:00 09/26/23 16:42 09/26/23 17:42 Temperature 99.3 F 100.1 F H 99.9 F H Pulse Rate 94 Respiratory Rate 16 Blood Pressure 112/63 Pulse Oximetry 94 Oxygen De
[2023-09-27 11:46] LABS: Glucose Point of Care 339 mg/dl (65-105)
[2023-09-27 11:52] LABS: Glucose Point of Care 402 mg/dl (65-105)
[2023-09-27] MEDS: INSULIN ASPART (*BKC) 100 UNITS/ML 15 UNITS SUB-Q (13:08)
--- NOTE | 2023-09-27 16:28 | PHAR ---
Pharmacy verified home med: *USE FROM HOME* Semaglutide (Ozempic) 0.5 mg dose (2 mg/3 mL) SUBCU Pen Inject 0.5 mg under the skin once weekly on Sunday
[2023-09-27 16:30] VITALS: BP 134/56; PULSE 95; RESP 16; TEMP 36.4; O2SAT 98
[2023-09-27] MEDS: GLIMEPIRIDE 2 MG TABLET BY MOUTH (16:32)
[2023-09-27 17:04] LABS: Glucose Point of Care 366 mg/dl (65-105)
[2023-09-27 20:04] VITALS: BP 145/64; PULSE 100; RESP 17; TEMP 36.8; O2SAT 91
[2023-09-27] MEDS: VANCOMYCIN 1,500 MG/NS 500 ML 1,500 MG/500 ML BAG 250 MG IVPB (20:18)
[2023-09-27] MEDS: MELATONIN 5 MG TABLET 20 MG PO (20:18)
[2023-09-27 20:31] LABS: Glucose Point of Care 344 mg/dl (65-105)
[2023-09-27] MEDS: diphenhydrAMINE HCl INJ 50 MG/ML VIAL 25 MG IV PUSH (21:08)
[2023-09-28] MEDS: ACETAMINOPHEN 325 MG TABLET 650 MG BY MOUTH (02:45)
[2023-09-28 05:11] VITALS: BP 129/62; PULSE 104; RESP 18; TEMP 37.1; O2SAT 92
[2023-09-28 05:14] LABS: Hematocrit 33.8 % (37.0-47.0); Mean Corpuscular HGB Conc 29.6 g/dl (32-36); Mean Corpuscular Hemoglobin 24.1 pg (26-34); Mean Corpuscular Volume 81.4 fl (80-100); Mean Platelet Volume 10.3 fl (7.4-10.4); Platelet Count Result 286 k/mm3 (150-375); Red Blood Count 4.15 M/mm3 (4.2-5.4); Red Cell Distribution Width 23.1 % (11.5-14.5); White Blood Count 8.8 K/mm3 (4.5-10.0)
[2023-09-28 05:24] LABS: Anion Gap 8 mmol/L (4-12); Blood Urea Nitrogen 35 mg/dL (7-17); Calcium 10.5 mg/dL (8.4-10.2); Carbon Dioxide 27 mmol/L (22-30); Chloride 100 mmol/L (98-107); Estimated CRCL calculation 35 ml/min; Estimated Glomerular Filt Rate 37; Glucose 223 mg/dL (65-110); Potassium 4.2 mmol/L (3.4-5.0); Sodium 135 mmol/L (137-145)
[2023-09-28] MEDS: HYDROcodone/acetaminophen (*CRX) 5-325 MG TABLET 1 TAB PO ×2 (06:05→13:29)
[2023-09-28] MEDS: LEVOTHYROXINE SODIUM 112 MCG TABLET PO (06:05)
[2023-09-28 08:20] LABS: Glucose Point of Care 233 mg/dl (65-105)
--- NOTE | 2023-09-28 09:42 | PM.PNORT ---
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: Qualifiers: Encounter type: initial encounter Qualified Code(s): M97.11XA - Periprosthetic fracture around internal prosthetic right knee joint, initial encounter Code(s): M97.11XA - Periprosthetic fracture around internal prosthetic right knee joint, initial encounter Status: Acute (2) Fracture of lateral malleolus of right fibula: Qualifiers: Encounter type: initial encounter Fracture alignment: nondisplaced Fracture type: closed Qualified Code(s): S82.64XA - Nondisplaced fracture of lateral malleolus of right fibula, initial encounter for closed fracture Code(s): S82.61XA - Displaced fracture of lateral malleolus of right fibula, initial encounter for closed fracture Status: Acute (3) Fracture of medial malleolus of right tibia: Qualifiers: Encounter type: initial encounter Fracture alignment: nondisplaced Fracture type: closed Qualified Code(s): S82.54XA - Nondisplaced fracture of medial malleolus of right tibia, initial encounter for closed fracture Code(s): S82.51XA - Displaced fracture of medial malleolus of right tibia, initial encounter for closed fracture Status: Acute Plan Follow up on fractures. No change in condition. Patient having difficulty with UTI and urinary retention over night. No pain in the leg. Notes that she did better with formal physical therapy yesterday. Continue current treatment plan. Okay for discharge once medically cleared and d/c planning is complete. Ortho instructions: D/C to SNF/rehab Xray in 2 weeks. Follow up in office in 6 weeks with xrays. Please call the office for appointments. [facility] . Toe-touch weight bearing for transfers with CAM boot and knee immobilizer on. May remove CAM boot while in bed. Continue ice and elevation. Keep immobilizer on while in bed and limit ROM of the knee to 45 degrees for 3 weeks. May gradually increase range of motion as tolerated after that. May be partial weight bearing with a walker and CAM boot at 4 weeks. DVT prophylaxis: continue Lovenox while in the hospital. May be discharged on 81 mg ASA twice a day. Pain medication: Oxycodone Subjective Subjective Date/Time Seen: 09/28/23 09:42 Interval history: Patient having difficulty with UTI and urinary retention over night. No pain in the leg. Notes that she did better with formal physical therapy yesterday. Continue current treatment plan. Okay for discharge once medically cleared and d/c planning is complete. Review of Systems Review of Systems: All systems reviewed & are unremarkable except as noted in HPI and below Exam Narrative: Overweight 77 y/o female patient. CAM boot and knee immobilizer in place. 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 Significant edema distally. Moderate ecchymosis at the knee. Immobilizer and short posterior leg split intact. Joint effusion. No warmth or erythema. Diffuse Tenderness over the medial joint line left knee. Range of motion limited by pain. Normal light touch sensation. No skin lesions. Mild Calf tenderness. Objective Data Vital Signs Vital Signs: Vital Signs - 24 hr 09/27/23 16:30 09/27/23 20:04 09/28/23 05:11 Temperature 97.6 F 98.3 F 98.7 F Pulse Rate 95 100 104 H Respiratory Rate 16 17 18 Blood Pressure 134/56 L 145/64 H 129/62 Pulse Oximetry 98 91 92 Intake/Output Intake/Output: Intake & Output 09/25/23 09/26/23 09/27/23 09/28/23 23:59 23:59 23:59 23:59 Intake Total 1730 1650 2110.0 100 Output Total 1350 1500 1150 700 Balance 380 150 960.0 -600 Meds/Results Medications: Active Medications Generic Name Dose Route Start Last Admin Trade Name Freq PRN Reason Stop Dose Admin Acetaminophen 650 mg 09/25/23 16:47 09/28/23 02:45 Acetaminophen 325 Mg Tablet BY MOUTH 650 mg Q6HR P
[2023-09-28] MEDS: MIDODRINE HCL 2.5 MG TABLET BY MOUTH (10:30)
[2023-09-28] MEDS: GLIMEPIRIDE 2 MG TABLET 4 MG BY MOUTH (10:30)
[2023-09-28] MEDS: CHOLECALCIFEROL 5,000 UNITS TABLET 5000 UNITS PO (10:30)
[2023-09-28] MEDS: ROSUVASTATIN 20 MG TABLET PO (10:31)
[2023-09-28] MEDS: GABAPENTIN 100 MG CAPSULE BY MOUTH ×2 (10:31→12:31)
[2023-09-28] MEDS: MAGNESIUM 27 MG TABLET (500 MG MAG GLUCONATE) PO (10:31)
[2023-09-28] MEDS: SOLIFENACIN 5 MG TABLET 10 MG PO (10:31)
[2023-09-28] MEDS: TAMSULOSIN HCL 0.4 MG CAPSULE PO (10:31)
[2023-09-28] MEDS: polyethylene glycoL 3350 17 GM POWD.PACK PO (10:32)
[2023-09-28] MEDS: ASPIRIN 81 MG CHEWABLE TABLET PO (10:32)
[2023-09-28] MEDS: ENOXAPARIN 40 MG/0.4 ML SYRINGE SUB-Q (10:32)
[2023-09-28] MEDS: MULTIVITAMINS /C LUTEIN (CENTRUM SILVER) TABLET *BKC 1 TAB PO (10:32)
[2023-09-28] MEDS: metFORMIN HCL 500 MG TABLET BY MOUTH (10:32)
[2023-09-28] MEDS: INSULIN ASPART (*BKC) 100 UNITS/ML SUB-Q ×2 (10:33→12:31)
[2023-09-28 11:05] VITALS: BMI 34.0
[2023-09-28 12:06] LABS: Glucose Point of Care 252 mg/dl (65-105)
--- NOTE | 2023-09-28 12:58 | PM.IMPN ---
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 Recommending nonsurgical treatment. TTWB with a knee immobilizer is indicated. ROM limited to 45 degrees for 3 weeks. Analgesics as needed. PT/OT, will need placement. (2) Fracture of lateral malleolus of right fibula: Qualifiers: Encounter type: initial encounter Fracture alignment: nondisplaced Fracture type: closed Qualified Code(s): S82.64XA - Nondisplaced fracture of lateral malleolus of right fibula, initial encounter for closed fracture Code(s): S82.61XA - Displaced fracture of lateral malleolus of right fibula, initial encounter for closed fracture Status: Acute Assessment and Plan: See #1 Needs CAM boot Repeat radiographs at 2 weeks and 6 weeks. Follow up in the clinic in 6 weeks. (3) Fracture of medial malleolus of right tibia: Qualifiers: Encounter type: initial encounter Fracture alignment: nondisplaced Fracture type: closed Qualified Code(s): S82.54XA - Nondisplaced fracture of medial malleolus of right tibia, initial encounter for closed fracture Code(s): S82.51XA - Displaced fracture of medial malleolus of right tibia, initial encounter for closed fracture Status: Acute Assessment and Plan: See #1 Needs CAM boot Repeat radiographs at 2 weeks and 6 weeks. Follow up in the clinic in 6 weeks. (4) Urinary tract infection: Code(s): N39.0 - Urinary tract infection, site not specified Status: Acute Assessment and Plan: Urine is grossly abnormal and she endorses dysuria. Urine culture positive for enterococcus, sensitivities pending. Rocephin transitioned to vancomycin. (5) Type 2 diabetes mellitus: Code(s): E11.9 - Type 2 diabetes mellitus without complications Status: Acute Assessment and Plan: Insulin Lispro sliding scale, Accu-checks qAc and HS and Hold oral hypoglycemics Initiate hypoglycemic precautions (6) Hypothyroidism: Code(s): E03.9 - Hypothyroidism, unspecified Status: Acute Assessment and Plan: Continue home medication (7) Benign essential hypertension: Code(s): I10 - Essential (primary) hypertension Status: Acute Assessment and Plan: continue home medication (8) Chronic kidney disease: Code(s): N18.9 - Chronic kidney disease, unspecified Status: Acute Assessment and Plan: Stable. Subjective Date/time seen: 09/28/23 12:58 Exam Narrative: GENERAL: Comfortable, no acute distress HENMT: moist mucous membranes EYES: EOM intact b/l NECK: no lymphadenopathy RESPIRATORY: clear to auscultation, no increased respiratory effort CARDIO: Regular rate and rhythm GI: soft, nontender, bowel sounds present SKIN/EXTREMITIES: right knee/ leg wrapped and in a brace. NEURO: PROM intact, answers questions appropriately, A&O x3 Objective Data Vital Signs Vital Signs: Vital Signs - 24 hr 09/27/23 16:30 09/27/23 20:04 09/28/23 05:11 Temperature 97.6 F 98.3 F 98.7 F Pulse Rate 95 100 104 H Respiratory Rate 16 17 18 Blood Pressure 134/56 L 145/64 H 129/62 Pulse Oximetry 98 91 92 Intake/Output Intake/Output: Intake & Output 09/25/23 09/26/23 09/27/23 09/28/23 23:59 23:59 23:59 23:59 Intake Total 1730 1650 2110.0 340 Output Total 1350 1500 1150 700 Balance 380 150 960.0 -360 Meds
--- NOTE | 2023-09-28 13:07 | PM.DS ---
DS: Admitting Diagnosis Discharge Date 09/28/23 Admitting Diagnosis Right knee and ankle fracture DS: Discharge Diagnosis Discharge Diagnosis (1) Periprosthetic fracture around internal prosthetic right knee joint: Qualifiers: Encounter type: initial encounter Qualified Code(s): M97.11XA - Periprosthetic fracture around internal prosthetic right knee joint, initial encounter Code(s): M97.11XA - Periprosthetic fracture around internal prosthetic right knee joint, initial encounter Status: Acute (2) Fracture of lateral malleolus of right fibula: Qualifiers: Encounter type: initial encounter Fracture alignment: nondisplaced Fracture type: closed Qualified Code(s): S82.64XA - Nondisplaced fracture of lateral malleolus of right fibula, initial encounter for closed fracture Code(s): S82.61XA - Displaced fracture of lateral malleolus of right fibula, initial encounter for closed fracture Status: Acute (3) Fracture of medial malleolus of right tibia: Qualifiers: Encounter type: initial encounter Fracture alignment: nondisplaced Fracture type: closed Qualified Code(s): S82.54XA - Nondisplaced fracture of medial malleolus of right tibia, initial encounter for closed fracture Code(s): S82.51XA - Displaced fracture of medial malleolus of right tibia, initial encounter for closed fracture Status: Acute (4) Urinary tract infection: Code(s): N39.0 - Urinary tract infection, site not specified Status: Acute (5) Type 2 diabetes mellitus: Code(s): E11.9 - Type 2 diabetes mellitus without complications Status: Acute (6) Hypothyroidism: Code(s): E03.9 - Hypothyroidism, unspecified Status: Acute (7) Benign essential hypertension: Code(s): I10 - Essential (primary) hypertension Status: Acute (8) Chronic kidney disease: Code(s): N18.9 - Chronic kidney disease, unspecified Status: Acute DS: Summary Hospital Course Hospital Course: This is a 77-year-old female with history of migraines, hypertension, hyperlipidemia, chronic kidney disease, peptic ulcer, kidney stones, arthritis, anemia, type 2 diabetes mellitus, hypothyroidism, depression, and anxiety who presented to the emergency department via EMS from home for evaluation of right leg pain after a fall. She got tripped up in her cane while walking in the bathroom on Sunday, causing her to land on her right side and strike her head on the floor. She is uncertain if there was loss of consciousness. In the ED: She was afebrile on arrival with stable vital signs. Labs are significant for WBC count of 9.2, hemoglobin 10.5, BUN 21, creatinine 1.10, glucose 375. Urine is positive for 2+ protein, 3+ glucose, trace ketones, 2+ blood, 2+ leukocyte esterase, 21 to 50 RBC, greater than 100 WBC, and 4+ bacteria. Imaging showed possible acute fractures of the right medial and lateral malleolus and a periprosthetic fracture of the proximal anterior tibia. Orthopedist, Dr. Canas, recommended an immobilizer and nonweightbearing on that leg. PT and OT ordered on the patient. Urine culture grew Enterococcus and she was transitioned from Rocephin to vancomycin. Vancomycin was able to be transitioned to linezolid. Due to interaction of SSRI and linezolid will hold her Cymbalta during the time she will be on antibiotic therapy. Patient did have retention while she was in the hospital and she was started on tamsulosin. She had Marcus catheter placed and this was taken out on 09/27/2023 and voiding trial performed. She was accepted into SNF. She will be discharged there to continue therapy. Time Spent with Patient Time attestation: Total time spent providing and/or coordinating discharge services: Exam Narrative: GENERAL: Comfortable, no acute distress HENMT: moist mucous membranes EYES: EOM intact b/l RESPIRATORY: clear to auscultation, no increased respiratory effort CARDIO:
[2023-09-28] MEDS: ONDANSETRON INJ 4 MG/2 ML VIAL IV PUSH (14:10)
[2023-09-28 14:50] VITALS: BP 134/55; PULSE 89; RESP 17; TEMP 36.2; O2SAT 92
[2023-09-28 15:20] LABS: SARS-CoV-2 RNA PCR Negative (Negative)
== END 2023-09-28 17:05 | DRG 563 ==
LOC: ANHED 12:50 → ANH2MED 13:37
PROVIDERS: Physician Assistant; Admitting Provider Internal Medicine; Emergency Provider Physician Assistant; PCP Internal Medicine; Visit Provider Internal Medicine Critical Care Medicine
DX: S82.844A Nondisplaced bimalleolar fracture of right lower leg, initial encounter for closed fracture (principal); S82.101A Unspecified fracture of upper end of right tibia, initial encounter for closed fracture; M97.11XA Periprosthetic fracture around internal prosthetic right knee joint, initial encounter; N39.0 Urinary tract infection, site not specified; N18.9 Chronic kidney disease, unspecified; I12.9 Hypertensive chronic kidney disease with stage 1 through stage 4 chronic kidney disease, or unspecified chronic kidney disease; D50.9 Iron deficiency anemia, unspecified; E11.22 Type 2 diabetes mellitus with diabetic chronic kidney disease; E78.5 Hyperlipidemia, unspecified; E55.9 Vitamin D deficiency, unspecified; E03.9 Hypothyroidism, unspecified; B95.2 Enterococcus as the cause of diseases classified elsewhere; R33.9 Retention of urine, unspecified; N32.81 Overactive bladder; M75.01 Adhesive capsulitis of right shoulder; M15.9 Polyosteoarthritis, unspecified; M48.10 Ankylosing hyperostosis [Forestier], site unspecified; G89.29 Other chronic pain; R29.6 Repeated falls; F41.9 Anxiety disorder, unspecified; F32.A Depression, unspecified; W19.XXXA Unspecified fall, initial encounter; Z96.651 Presence of right artificial knee joint; Z20.822 Contact with and (suspected) exposure to COVID-19; Z79.4 Long term (current) use of insulin; Z98.1 Arthrodesis status; Z79.82 Long term (current) use of aspirin; Z87.442 Personal history of urinary calculi; Z96.82 Presence of neurostimulator
CPT/HCPCS: 29515; 36415; 70450; 72125; 73502; 73564; 73590; 73610; 73700; 80048; 80053; 81001; 82550; 82948; 83036; 83735; 85025; 85027; 85055; 85610; 85730; 87077; 87086; 87088; 87181; 87635; 96365; 96372; 97110; 97161; 97166; 97530; 99285; A9270; G0378; J0696; J1200; J1650; J1815; J2405; J3370

== ENCOUNTER 2023-11-17 20:32 | Emergency (ER) | payer MEDICARE, OTHER, SELFPAY ==
--- NOTE | ~2023-11-17 | XR_ITS ---
EXAMINATION: XR chest 1V portable DATE: 11/17/2023 21:04 INDICATION: Chest pain. TECHNIQUE: A single frontal view of the chest was obtained. COMPARISON: Chest single view 02/22/2023 FINDINGS: The lung volumes are small. There is no pneumonia, pleural effusion, or pneumothorax. Cardi omegaly is noted. A right upper extremity peripherally inserted central venous catheter (PICC) is see n with tip at the superior cavoatrial junction. Epidural electrodes are noted. IMPRESSION: 1. Cardiomegaly. Reviewed, dictated and finalized at location E. IMPRESSION: 1. Cardiomegaly.
--- NOTE | 2023-11-17 20:47 | ECG_ITS ---
Test Date: 2023-11-17 20:40:11 Measurements Intervals [place] Rate: 87 P: 25 TN: 177 QRS: 17 QRSD: 89 T: 47 QT: 343 QTc: 413 Interpretive Statements SINUS RHYTHM No previous ECG available for comparison Electronically Signed On 11-18-2023 13:42:59 CDT by Avinash Rivas M.D.
[2023-11-17 20:54] VITALS: BP 138/71; PULSE 84; PULSE 86; RESP 19; TEMP 36.6; O2SAT 98
[2023-11-17 20:59] VITALS: O2SAT 98
--- NOTE | 2023-11-17 21:11 | ED.CHESTPAIN ---
HPI - Chest Pain General Chief Complaint: Chest Pain Stated Complaint: chest pain Time Seen by Provider: 11/17/23 20:36 History of Present Illness HPI narrative: patient was watching horror movie reluctantly with her , and thinks that she had a panic attack, started having nonradiating chest tightness to her left chest. EMS called, gave her ASA, by the time she arrived here her sx completely resolved. No DOUGIE, n/v, focal numbness/weakness; ready to go home. Related Data Home Medications Medication Instructions Recorded Confirmed blood sugar diagnostic (Accu-Chek #10 ea 03/03/19 09/24/23 Karishma Plus test strips) lancets (Accu-Chek Softclix #50 ea 03/03/19 09/24/23 Lancets) pen needle, diabetic 32 gauge x #50 ea 03/03/19 09/24/2304/12 (Novofine 32) polyethylene glycol 3350 17 17 gm PO DAILY PRN Constipation 03/03/19 09/24/23 gram/dose oral powder aspirin 81 mg capsule 81 mg PO DAILY 05/09/23 09/24/23 One-A-Day 50 Plus 1 cap PO DAILY 09/24/23 09/24/23 biotin 1,000 mcg chewable tablet 1,000 mcg PO DAILY 09/24/23 09/24/23 cholecalciferol (vitamin D3) 125 125 mcg PO DAILY 09/24/23 09/24/23 mcg (5,000 unit) tablet (Vitamin D3) coffee extract 100 mg-phosphatidyl 1 cap PO DAILY 09/24/23 09/24/23 serine 100 mg capsule (Neuriva Original) diazepam 5 mg tablet 5 mg PO HS PRN anxiety 09/24/23 09/24/23 dimenhydrinate 50 mg tablet 100 mg PO DAILY 09/24/23 09/24/23 diphenhydramine HCl 25 mg tablet 25 mg PO HS 09/24/23 09/24/23 duloxetine 30 mg capsule,delayed 30 mg PO DAILY 09/24/23 09/24/23 release duloxetine 60 mg capsule,delayed 60 mg PO DAILY 09/24/23 09/24/23 release ginkgo biloba 40 mg tablet 60 mg PO DAILY 09/24/23 09/24/23 hydrocodone 5 mg-acetaminophen 325 1 tablet PO TID PRN pain 09/24/23 09/24/23 mg tablet levothyroxine 112 mcg tablet 112 mcg PO DAILY 09/24/23 09/24/23 magnesium 500 mg tablet 500 mg PO DAILY 09/24/23 09/24/23 melatonin 10 mg tablet 20 mg PO HS 09/24/23 09/24/23 zinc gluconate 50 mg tablet 50 mg PO DAILY 09/24/23 09/24/23 Allergies Allergy/AdvReac Type Severity Reaction Status Date / Time fluconazole Allergy Severe RASH, Verified 11/12/23 11:05 BLISTERS Sulfa (Sulfonamide Allergy Severe SWELLING Verified 11/12/23 11:05 Antibiotics) sulfamethoxazole Allergy Severe SWELLING Verified 11/12/23 11:05 trimethoprim Allergy Severe SWELLING Verified 11/12/23 11:05 cephalexin Allergy Mild Rash, Verified 11/12/23 11:05 THROAT BURNING naproxen Allergy Mild RASH- ALEVE Verified 11/12/23 11:05 NSAIDS (Non-Steroidal Allergy Mild AVOIDS R/T Verified 11/12/23 11:05 Anti-Inflamma KIDNEY FUNCTION Penicillins Allergy Mild RASH Verified 11/12/23 11:05 Quinolones Allergy Mild RASH Verified 11/12/23 11:05 tetracycline Allergy Mild RASH Verified 11/12/23 11:05 clarithromycin Allergy Unknown Rash Verified 11/12/23 11:05 levofloxacin Allergy Unknown rash Verified 11/12/23 11:05 nitrofurantoin Allergy Unknown rash Verified 11/12/23 11:05 sulfamethizole Allergy Unknown Rash Verified 11/12/23 11:05 Tetracyclines Allergy Unknown rash Verified 11/12/23 11:05 morphine Allergy Numbness Verified 11/12/23 11:05 Review of Systems Review of Systems: All systems reviewed & are unremarkable except as noted in HPI and below PMFSH Past Medical History Medical History Adhesive capsulitis of right shoulder Anxiety with depression Benign essential hypertension Bowel perforation Chronic kidney disease Chronic pain syndrome Diffuse idiopathic skeletal hyperostosis Esophageal dysmotility Generalized osteoarthritis of multiple sites Hyperlipidemia Hypothyroidism Iron deficiency anemia Kidney stones Overactive bladder Syncope Type 2 diabetes mellitus Vitamin D deficiency Surgical History Surgical History History of bowel resection Perforated duodenal ulcer. History of spinal
[2023-11-17 21:35] VITALS: O2SAT 98
== END 2023-11-17 21:50 ==
PROVIDERS: Emergency Provider Emergency Medicine; PCP Internal Medicine
DX: F41.0 Panic disorder [episodic paroxysmal anxiety] (principal); R07.9 Chest pain, unspecified; I12.9 Hypertensive chronic kidney disease with stage 1 through stage 4 chronic kidney disease, or unspecified chronic kidney disease; E11.22 Type 2 diabetes mellitus with diabetic chronic kidney disease; N18.9 Chronic kidney disease, unspecified
CPT/HCPCS: 71045; 93005; 99284

== ENCOUNTER 2024-01-03 16:01 | Outpatient (CLI) | payer MEDICARE, OTHER, SELFPAY ==
--- NOTE | ~2024-01-03 | XR_ITS ---
EXAM: XR ankle RT min 3V DATE: 01/03/2024 16:33 HISTORY: S82.61XA - Displaced fracture of lateral malleolus of rig... . COMPARISON: 09/24/2023. FINDINGS: Decreased mineralization. Possible old healed fractures of the medial and lateral malleoli . No new acute fracture or dislocation. No lytic or blastic lesion. Achilles and plantar enthesopathy Degenerative changes at the ankle joint. No erosion or periosteal change. Soft tissues within normal limits. IMPRESSION: Osteopenia. Possible old healed fractures of the lateral and medial malleoli. Reviewed, dictated and finalized at location K.
--- NOTE | ~2024-01-03 | XR_ITS ---
XR knee RT min 4V Ordering provider: Shad Canas MD History: . S82.209A - Unspecified fracture of shaft of unspecified t... . Comparison: September 24, 2023 FINDINGS: BONES: Postoperative changes in the distal femur and proximal tibia with total knee arthroplasty. SOFT TISSUES: Normal. IMPRESSION: No acute osseous abnormality right knee. Total knee arthroplasty. Reviewed, dictated and finalized at location A.
== END 2024-01-03 16:02 | disposition home or self-care (01) ==
PROVIDERS: PCP Internal Medicine; Visit Provider Orthopaedic Surgery
DX: M85.871 Other specified disorders of bone density and structure, right ankle and foot (principal); Z96.651 Presence of right artificial knee joint
CPT/HCPCS: 73564; 73610

== ENCOUNTER 2024-08-22 12:11 | Outpatient (CLI) | payer MEDICARE, OTHER, SELFPAY ==
--- NOTE | ~2024-08-22 | CT_ITS ---
CT soft tissue neck wo con Ordering provider: Ramses Hammer MD History: 78 years Female with . 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 . Comparison: None. Technique: CT soft tissues neck was performed without contrast. . Automated exposure control and ite rative reconstruction technique were employed. The dose-length product was 387.06 mGy-cm. Findings: LOWER HEAD: The visualized brain parenchyma, optic globes/orbits and mastoids are normal. The visua lized paranasal sinuses are well aerated. SALIVARY GLANDS: Normal. THYROID: Normal. SUPRAHYOID DEEP SPACES: Normal. CAROTID ARTERIES: Mild atherosclerotic changes. JUGULAR VEINS: Normal. TONSILS: Normal. ORAL CAVITY: Partially obscured by dental amalgam but normal as visualized. PHARYNX, LARYNX AND TRACHEA: Narrowing of the trachea which may indicate tracheomalacia. Otherwise, P atent and normal. No prevertebral soft tissue swelling. SUPERFICIAL SOFT TISSUES: Normal. No lymphadenopathy or neck mass. THORACIC INLET/VISUALIZED UPPER CHEST: Normal. SKELETAL: Hyperostosis frontalis interna is seen in the skull bones. Fusion at the level of C5-C6. Ag e appropriate degenerative changes. IMPRESSION: 1. Bilateral carotid calcifications. 2. Degenerative changes of the spine 3. Slight narrowing of the trachea which may indicate tracheomalacia. 4. No other definite abnormality seen. Reviewed, dictated and finalized at location A.
--- NOTE | ~2024-08-22 | CT_ITS ---
CT brain wo con Ordering provider: Ramses Hammer MD History: 78 years Female with . 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 . Comparison: None. Technique: CT of the head without contrast. Radiation reduction technique utilized.The dose-length product was 599.57 mGy-cm. FINDINGS: BRAIN PARENCHYMA AND CSF SPACES: Mild leukoaraiosis and diffuse cortical atrophy. Mild atheromatous d isease. Arachnoid cyst seen adjacent to the right cerebellar hemisphere area measuring 1.4 x 2.9 cm u nchanged.. Old infarct in the right cerebellar is not excluded. Old lacunar infarct in the left thala mus is seen.. No midline shift, mass effect or hemorrhage. The brain parenchyma and CSF spaces are o therwise normal. VISUALIZED PARANASAL SINUSES: Well aerated. MASTOIDS: Well aerated. BONES: The bones appear intact. SOFT TISSUES: Visualized nasopharynx is normal. Superficial soft tissues are normal. IMPRESSION: No acute intracranial findings. Reviewed, dictated and finalized at location A.
== END 2024-08-22 12:12 | disposition home or self-care (01) ==
LOC: MICIMG 08-23 12:11
PROVIDERS: PCP Internal Medicine; Visit Provider Internal Medicine
DX: R41.3 Other amnesia (principal); F09 Unspecified mental disorder due to known physiological condition
CPT/HCPCS: 70450; 70490